=== PATIENT | male | born 1990 | race Asian ===

== ENCOUNTER 2021-01-06 08:01 | Emergency (ER) | payer BC, SELFPAY ==
--- NOTE | ~2021-01-06 | XR_ITS ---
EXAMINATION:XR cervical spine 4-5V DATE: 01/06/2021 09:35 INDICATION: Neck pain TECHNIQUE: AP, lateral, lateral swimmers and odontoid views of the cervical spine are provided. COMPARISON: None FINDINGS: Alignment is normal. The odontoid is intact. No fracture is identified. Evaluation is somew hat limited by head positioning. Vertebral body heights and disk spaces are normal. Prevertebral soft tissues are normal. There is rightward tilt of the head. IMPRESSION: 1. No acute osseous abnormality. 2. Torticollis. Reviewed, dictated and finalized at location B.
[2021-01-06 08:11] VITALS: BP 126/78; PULSE 64; RESP 18; TEMP 36.7; O2SAT 100
[2021-01-06] MEDS: diazePAM (*CRX) 5 MG TABLET PO (09:49)
--- NOTE | 2021-01-06 10:53 | ED.BACK ---
HPI - Back Pain/Injury General Chief Complaint: Back Pain/Injury Stated Complaint: back and arm pain/neck pain Time Seen by Provider: 01/06/21 08:11 Source: RN notes reviewed History of Present Illness HPI Narrative: Patient presents to emergency department from home for neck and back pain. Patient states he has had ongoing history with upper neck and back pain for the past year and a half that worsened upon awaking 2 days ago. The pain is located over the left lower neck and upper back states he is unable to turn his neck secondary to the pain and then head is held slightly rotated to the right patient states pain radiates into his left arm he denies any known trauma or injury states he took ibuprofen at 630 this morning denies any fevers or chills, chest pain shortness of breath numbness of the extremities or any other symptoms Related Data Home Medications Medication Instructions Recorded Confirmed albuterol sulfate 90 mcg/actuation 1 puff INHALATION Q4H PRN 06/26/19 06/26/19 aerosol inhaler epinephrine 0.3 mg/0.3 mL 0.3 mg IM ONCE 06/26/19 06/26/19 injection, auto-injector methylphenidate HCl 20 mg tablet 20 mg PO DAILY 06/26/19 06/26/19 montelukast 10 mg tablet 10 mg PO DAILY 06/26/19 06/26/19 Allergies Allergy/AdvReac Type Severity Reaction Status Date / Time No Known Allergies Allergy Verified 01/06/21 09:02 Review of Systems Review of Systems: Gen.: Denies fevers or chills Eyes: Denies eye pain or visual change ENT: Denies congestion Respiratory: Denies shortness of breath or cough CV: Denies chest pain or palpitations GI: Denies abdominal pain nausea, emesis Musculoskeletal: See HPI Neuro: Denies numbness, tingling, weakness or focal weakness Skin: Denies rash Except as documented, all other systems reviewed and negative [facility] Past Medical History Medical History (Updated 01/06/21 @ 10:56 by Garfield Yang DO) Patient denies significant medical history Social History Social History Smoking status: Never smoker Alcohol intake: never Substance use: never Exam Narrative: APPEARANCE: No acute distress, nontoxic, resting in bed EYES: EOMI HEENT: Normocephalic, atraumatic, Neck: Supple no midline tenderness to palpation has held slightly rotated and able to the right unable to side bend to the left secondary to pain patient can rotate the left approximately 45 degrees and only 30 degrees to the right secondary to pain tenderness to palpation in the left trapezius region with muscle spasm present RESPIRATORY: No respiratory distress Clear to auscultation bilaterally with no rhonchi wheezing or rales. CARDIOVASCULAR: Regular rate and rhythm without murmurs rubs or gallops. ABDOMINAL: Soft, nontender, nondistended, no rebound or guarding MUSCULOSKELETAl: Moves all extremities. No clubbing, cyanosis or edema. Tender to palpation in the left neck with flexion abduction of left shoulder in the 45 degrees, bilateral radial pulse 2+ NEURO: Awake and alert. Following commands, speech normal, no focal deficits SKIN:: Warm, dry. No rashes lesions or abrasions PSYCHIATRIC: Normal affect/mood, Course Course Emergency Course: Patient has asking for additional pain medicine he took ibuprofen at 630 this morning not due for Toradol or any official anti-inflammatories at this time given Valium in ED and wished not give any further narcotics Tylenol given Discussed with patient results of workup and diagnosis. Discussed need for follow-up with primary care, proper use of medication, and reasons to return to the emergency department. Patient understands and agrees to current treatment plan Vital Signs Vital signs: Vital Signs Temperature 98.0 F 01/06/21 08:11 Pulse Rate 64 01/06/21 08:11 Respiratory Rate 18 01/06/21 08:11 Blood Pressure 126/78 01/06/21 08:11 Pulse Oximetry 100 01/06/21 08:11 Temperature 98.0 F 01/06/21 08:11 Puls
[2021-01-06] MEDS: ACETAMINOPHEN 500 MG TABLET 1000 MG PO (10:58)
[2021-01-06 11:10] VITALS: BP 140/77; PULSE 58; RESP 15; O2SAT 99
== END 2021-01-06 11:11 | disposition home or self-care (01) ==
PROVIDERS: Emergency Provider Emergency Medicine; PCP Family Medicine
DX: S16.1XXA Strain of muscle, fascia and tendon at neck level, initial encounter (principal); M43.6 Torticollis; X58.XXXA Exposure to other specified factors, initial encounter
CPT/HCPCS: 72050; 99283; A9270

== ENCOUNTER 2021-05-03 19:18 | Inpatient (IN) | payer BC, SELFPAY ==
--- NOTE | ~2021-05-03 | US_ITS ---
EXAMINATION: US scrotum doppler DATE: 05/06/2021 07:53 INDICATION: Scrotal infection. TECHNIQUE: Grayscale and Doppler ultrasound images of the testes were obtained. COMPARISON: Ultrasound 05/03/2021 FINDINGS: The right testis measures 4.3 x 2.7 x 2.5 cm. The left testis measures 4.2 x 2.9 x 3.1 cm. There is increased vascular flow to both testes. The right epididymis demonstrates increased vascular flow. The left epididymis demonstrate increased vascular flow. There is a small left hydrocele conta ining hypoechoic material and septations. Scrotal skin thickening is noted. IMPRESSION: 1. Small left hydrocele containing hypoechoic material and septations. 2. Bilateral epididymoorchitis. 3. Scrotal skin thickening. Reviewed, dictated and finalized at location A. ENTARY SPANISH TEACHER
--- NOTE | ~2021-05-03 | CT_ITS ---
EXAMINATION: CT abdomen pelvis w con EXAM DATE: 05/03/2021 23:52 INDICATION: scrotal pain, edema, recent surgery, LLQ abdominal . TECHNIQUE: Spiral CT of the abdomen and pelvis was performed without contrast. Axial, coronal and s agittal images of the abdomen and pelvis were reviewed. The dose-length product (DLP) for this exami nation was 392.62 mGy-cm. The exposure was tailored according to patient size (auto mA exposure cont rol), and iterative reconstruction (ASIR) was used as additional dose reduction technique. There is no prior study for comparison. FINDINGS: There is complex appearing left hydrocele with enhanced appearing wall, possible abscess. T here is severe edema of the scrotum without pneumatosis. There are 1.6 and 0.7 cm right liver lobe hy podensities medially likely benign histology given patient's age. The spleen, pancreas, adrenal gland s are unremarkable. Gallbladder is unremarkable. No biliary obstruction. Portal and splenic veins a re patent. Kidneys enhance symmetrically. There is no hydronephrosis. The prostate is unremarkabl e. The bladder is unremarkable. There is no retroperitoneal or pelvic lymphadenopathy. The appendix is normal. The stomach and small bowel are unremarkable. There is expected amount of c olonic stool. No free intraperitoneal gas. The heart is normal in size. There are no pericardial or pleural effusions. The lung bases are unremarkable. There are no osteoblastic or osteolytic les ions identified. IMPRESSION: 1. Moderate left hydrocele or possibly abscess. 2. Severe scrotal swelling without evidence of fasciitis. 3. Two small liver lesions likely benign. Reviewed, dictated and finalized at location A. CTIONS THERAPIST
--- NOTE | ~2021-05-03 | US_ITS ---
EXAMINATION: US scrotum doppler EXAM DATE: 05/03/2021 22:57 INDICATION: Scrotal edema, pain s/p surgery Edema post vasectomy, worse on left. TECHNIQUE: Multiple grayscale and Doppler images of the testicles and scrotum were obtained bilateral ly. There is no prior study for comparison. FINDINGS: Diffuse thickening of the scrotum suspected, edema. Right testicle measures 4.2 x 3.2 x 2.6 cm and is morphologically normal. Low resistance Doppler emil w confirmed. The epididymis is unremarkable. There is no hydrocele or varicocele. Left testicle measures 4.2 x 2.7 x 3.2 cm and is morphologically normal. Low resistance Doppler flow confirmed. The epididymis is unremarkable. Complex proteinaceous moderate size left-sided hydrocele with multiple septations. IMPRESSION: 1. Moderate-sized complex left-sided hydrocele. 2. Scrotal edema edema. Reviewed, dictated and finalized at location A. CIAN/ILLUSIONIST
[2021-05-03 19:23] VITALS: BP 122/68; PULSE 93; RESP 18; TEMP 36.8; O2SAT 100
--- NOTE | 2021-05-03 21:42 | ED.FEVER ---
HPI - Fever General Chief Complaint: Fever Stated Complaint: Fever of 102 after vasectomy Time Seen by Provider: 05/03/21 21:42 Source: patient Mode of arrival: ambulatory Limitations: no limitations History of Present Illness HPI Narrative: Patient is a 31-year-old male with a history of recent vasectomy on April 21, with Dr. Lara, presenting for evaluation of fever, testicular pain. Patient states that he has been taking 600 mg of ibuprofen every 8-12 hours since his surgery. Patient reports testicular swelling, greater on the left. Denies any dysuria, frequency or urgency. No discharge. No hesitancy. Patient reports some chafing in the left inguinal area which is causing him some discomfort. He reports a fever of 102 Fahrenheit this evening. Patient is not set to have follow-up for the next 2 weeks. He has not been seen since the surgery. Patient denies cough, vomiting, abdominal pain. No other rashes or bruising. No known history of Covid. He has been vaccinated for Covid. Related Data Home Medications Medication Instructions Recorded Confirmed albuterol sulfate 90 mcg/actuation 1 puff INHALATION Q4H PRN 06/26/19 06/26/19 aerosol inhaler methylphenidate HCl 20 mg tablet 20 mg PO DAILY 06/26/19 06/26/19 montelukast 10 mg tablet 10 mg PO DAILY 06/26/19 06/26/19 Allergies Allergy/AdvReac Type Severity Reaction Status Date / Time ciprofloxacin [From Cipro] Allergy Redness of Verified 05/04/21 00:31 Skin Review of Systems Review of Systems: CONSTITUTIONAL: Reports fever EYES: Denies visual changes, redness, or discharge. ENT: Denies rhinorrhea, congestion, sore throat, or otalgia. CARDIOVASCULAR: Denies chest pain, palpitations, or edema. RESPIRATORY: Denies cough or dyspnea. GASTROINTESTINAL: Denies abdominal pain, nausea, vomiting, or diarrhea. GENITOURINARY: Denies dysuria or hematuria. Reports left testicular pain. Denies penile discharge or lesions. SKIN: Denies rash or itching. MUSCULOSKELETAL: Denies back pain, joint pain, or myalgia. NEUROLOGIC: Denies headache, numbness, or weakness. [facility] Past Medical History Medical History (Updated 05/04/21 @ 00:13 by Yohana Marcano MD) Mild persistent asthma without complication Patient denies significant medical history Torticollis Social History Social History Smoking status: Never smoker Alcohol intake: never Alcohol use details: social Substance use: never Gender identity (if verbalized by the patient): Male Exam Narrative: GENERAL: Awake, alert, conversant HEAD: Normocephalic, atraumatic. EYES: PERRLA and EOMI. ENT: Nares clear, no rhinorrhea or epistaxis. Mucous membranes moist. NECK: Supple. CHEST: No respiratory distress, breathing even and non labored HEART: Regular rate, sinus rhythm ABDOMEN:Non distended, non tender : Patient with significant scrotal edema bilaterally, greater on the left than on the right. Skin of the scrotum is taut. It is mildly indurated and erythematous. There is ecchymosis and bruising. No associated inguinal lymphadenopathy. No excoriation. No hernia. Penis is uncircumcised, glans is normal, no discharge, lesions or pain. EXTREMITIES: Normal range of motion. No edema. SKIN: Warm, dry, no rash. NEURO:No focal deficits. Alert and oriented x3 Course Vital Signs Vital signs: Vital Signs Temperature 36.8 C 05/03/21 19:23 Pulse Rate 93 05/03/21 19:23 Respiratory Rate 18 05/03/21 19:23 Blood Pressure 122/68 05/03/21 19:23 Pulse Oximetry 100 05/03/21 19:23 Temperature 36.8 C 05/03/21 22:02 Pulse Rate 79 05/04/21 00:04 Respiratory Rate 18 05/04/21 00:04 Blood Pressure 136/69 05/04/21 00:04 Pulse Oximetry 100 05/04/21 00:04 MDM - Fever MDM Narrative Medical decision making narrative: Patient presenting for evaluation of fever, scrotal pain and edema. At the time of assessme
[2021-05-03 22:02] VITALS: BP 125/60; PULSE 77; RESP 18; TEMP 36.8; O2SAT 100
--- NOTE | 2021-05-03 22:02 | PC.NURSE ---
ultra sound called in at this time.
[2021-05-03] MEDS: SODIUM CHLORIDE 0.9% IV 1,000 ML 999 ML IV CONT (22:16)
[2021-05-03 22:38] LABS: Basophils Percent Auto 0.2 % (0.2-1.2); Eosinophils Absolute Auto 0.1 K/mm3 (0-0.3); Eosinophils Percent Auto 1.1 % (0-4.4); Hematocrit 32.4 % (42.0-52.0); Immature Granulocyte Absolute 0.07 K/mm3 (0.00-0.031); Immature Granulocyte Percent A 0.6 % (0-0.5); Lymphocytes Absolute Auto 1.23 K/mm3 (0.9-3.2); Lymphocytes Percent Auto 10.1 % (18.3-44.2); Mean Corpuscular Hemoglobin 28.6 pg (26-34); Mean Corpuscular Volume 84.2 fl (80-100); Mean Platelet Volume 9.4 fl (7.4-10.4); Monocytes Absolute Auto 1.4 K/mm3 (0.1-0.6); Monocytes Percent Auto 11.4 % (2.6-8.5); Neutrophils Absolute Auto 9.3 K/mm3 (1.3-6.7); Neutrophils Percent Auto 76.6 % (45.5-73.1); Platelet Count Result 251 k/mm3 (150-375); Red Blood Count 3.85 M/mm3 (4.6-6.20); Red Cell Distribution Width 11.4 % (11.5-14.5); White Blood Count 12.1 K/mm3 (4.5-10.0)
[2021-05-03 22:47] LABS: Add Urine Microscopic? YES; Appearance Urine Clear (Clear); Bilirubin Urine Negative (Negative); Blood Urine Negative (Negative); Color Urine Straw (Yellow); Glucose Urine UA Negative (Negative); Ketones Urine Trace mg/dL (Negative); Leukocyte Esterase Ur Negative LEU/UL (Negative); Mucus Urine Rare /lpf; Nitrate Urine Negative (Negative); Protein Urine Negative (Negative); RBC Urine 0-2 /hpf (0-2); Squamous Epithelial Cell Urine Rare /hpf (Few); Urobilinogen Urine Negative mg/dL (<2.0); WBC Urine 0-3 /hpf
[2021-05-03 22:50] LABS: Specific Grav Ur 1.002 (1.001-1.035)
[2021-05-03 22:51] LABS: Alanine Aminotransferase 100 U/L (4-50); Albumin Level 4.2 g/dL (3.5-5.1); Alkaline Phosphatase 155 U/L (38-126); Anion Gap 8 mmol/L (8-16); Aspartate Amino Transferase 64 U/L (17-59); Bilirubin,Total 1.1 mg/dL (0.2-1.3); Blood Urea Nitrogen 10 mg/dL (9-20); CRP 8.1 mg/dL (<1.0); Calcium 9.2 mg/dL (8.4-10.2); Carbon Dioxide 27 mmol/L (22-30); Chloride 99 mmol/L (98-107); Estimated CRCL calculation 118 ml/min; Estimated Glomerular Filt Rate > 60; Glucose 107 mg/dL (65-110); Potassium 3.4 mmol/L (3.4-5.0); Sodium 134 mmol/L (137-145)
--- NOTE | 2021-05-03 23:10 | PC.NURSE ---
Report received from LANRE Harkins, to continue care. Pt denies needs at present. Awaiting disposition.
[2021-05-04] VITALS (10 sets, daily range): BP systolic 118–136; BP diastolic 61–79; PULSE 79–103; RESP 18; TEMP 36.9–37.8; O2SAT 98–100; BMI 24.5
[2021-05-04] MEDS: CIPROFLOXACIN 400 MG/D5W 200ML 200 ML 200 MG IVPB (00:02)
--- NOTE | 2021-05-04 00:06 | PC.NURSE ---
Pt requests something for pain to his perineum. States normally takes 600mg of ibuprofen. Dr. Marcano made aware.
[2021-05-04] MEDS: MORPHINE SULFATE (*CRX) 4 MG/ML INJ IV PUSH (00:24)
--- NOTE | 2021-05-04 00:25 | PC.NURSE ---
Note reddish streak to left hand leading up to forearm from IV catheter where cipro was infusing. Cipro stopped and line flushed. Pt states feels a little itchy at the site which he didn't notice until asked. Denies SOB. Dr. Marcano made aware.
--- NOTE | 2021-05-04 01:02 | PC.NURSE ---
Redness to arm has completely gone without further intervention. Cipro listed as an allergy in patient's chart and pt informed.
[2021-05-04] MEDS: SODIUM CHLORIDE 0.9% IV 1,000 ML 125 ML IV CONT ×3 (01:56→17:12)
--- NOTE | 2021-05-04 02:51 | PC.NURSE ---
Pt updated on full bed capacity at present time. Made aware to let RN know if needs anything. Reminded pt of NPO status.
--- NOTE | 2021-05-04 05:03 | PC.NURSE ---
Attempt to call report, floor unable to take.
--- NOTE | 2021-05-04 05:03 | PC.NURSE ---
Bed assignment received from [employer]. SBAR faxed.
--- NOTE | 2021-05-04 06:12 | ADMGEN ---
This patient, Clint Mcguire, was admitted to [address] [place] [address] Room 307-02 at 0530. Patient/family oriented to hospital policies and general routines including ID bracelet, bed and alarms, visiting hours, pain management, procedures, bathroom and other care routines, personal items, smoking policy, room service/diet, and visiting hours. Information on how to activate the Rapid Response Team has been discussed. Patient/Family are encouraged to report perceived risks to care and to ask questions if they do not understand what they are told or what they should do.
--- NOTE | 2021-05-04 10:33 | PM.IMHP ---
H&P: HPI History of Present Illness Date/Time: 05/04/21 10:33 Chief Complaint: Left scrotal swelling with fever post vasectomy Narrative: Stan is a 31-year-old white male who underwent a vasectomy April 21. Patient has developed some left scrotal swelling with pain and what he described this fever. This problems and to make an emergency room visit. Patient has been afebrile in the emergency room [place] [id number]. Patient underwent a scrotal ultrasound as well as CT scan was describes complex left hydrocele with question of abscess. Patient will be admitted for IV antibiotics and further management. Review of Systems Review of Systems: All systems reviewed & are unremarkable except as noted in HPI and below PMFSH Past Medical History Medical History Mild persistent asthma without complication Patient denies significant medical history Torticollis Family History Family History Mother Eye cancer Mother Skin cancer Social History Social History Smoking status: Never smoker Alcohol intake: former Alcohol use details: social Substance use: never Gender identity (if verbalized by the patient): Male Spiritual care concerns: No Meds Home Medications and Allergies Home Medications Medication Instructions Recorded Confirmed Type albuterol sulfate 90 mcg/actuation 1 puff INHALATION Q4H PRN 06/26/19 05/04/21 History aerosol inhaler methylphenidate HCl 20 mg tablet 20 mg PO DAILY 06/26/19 05/04/21 History montelukast 10 mg tablet 10 mg PO DAILY 06/26/19 05/04/21 History cyclobenzaprine 10 mg PO Q8H PRN 05/04/21 05/04/21 History ibuprofen 600 mg PO Q6H PRN 05/04/21 05/04/21 History Allergies Allergy/AdvReac Type Severity Reaction Status Date / Time ciprofloxacin [From Cipro] Allergy Redness of Verified 05/04/21 03:46 Skin Vital Signs Vital Signs - 24 hr 05/03/21 19:23 05/03/21 22:02 05/04/21 00:04 Temperature 36.8 C 36.8 C Pulse Rate 93 77 79 Respiratory Rate 18 18 18 Blood Pressure 122/68 125/60 136/69 Pulse Oximetry 100 100 100 05/04/21 00:16 05/04/21 00:31 05/04/21 00:46 Temperature Pulse Rate Respiratory Rate Blood Pressure 132/75 130/73 120/66 Pulse Oximetry 100 100 100 05/04/21 01:22 05/04/21 01:46 05/04/21 05:30 Temperature 37.8 C H Pulse Rate 100 Respiratory Rate 18 Blood Pressure 132/79 118/66 124/71 Pulse Oximetry 100 99 99 Exam Const: General: cooperative and no acute distress HENMT: Head: normal to inspection Eyes: General: appearance normal, both eyes and all related structures Neck: Neck: normal visual inspection Chest: Chest palpation & inspection: normal inspection of the chest Resp: Effort & Inspection: normal respiratory effort Cardio: Rate: regular rate Rhythm: regular rhythm GI: GI Palp: Yes Soft to palpation : Penis: Yes normal penis Scrotum: edematous and scrotal swelling H&P: Results Labs Labs: Short CBC 05/03/21 Range/Units 22:28 WBC 12.1 H (4.5-10.0) K/mm3 Hgb 11.0 L (14.0-18.0) g/dL Hct 32.4 L (42.0-52.0) % Plt Count 251 (150-375) k/mm3 BMP 05/03/21 22:28 Sodium 134 L Potassium 3.4 Chloride 99 Carbon Dioxide 27 BUN 10 Creatinine 0.70 Glucose 107 Calcium 9.2 Liver Function 05/03/21 Range/Units 22:28 Total Bilirubin 1.1 (0.2-1.3) mg/dL AST 64 H (17-59) U/L ALT 100 H (4-50) U/L Alkaline Phosphatase 155 H (38-126) U/L Albumin 4.2 (3.5-5.1) g/dL Urine 05/03/21 Range/Units 22:28 Urine Color Straw (Yellow) Urine Appearance Clear (Clear) Urine pH 6.0 (5.0-9.0) Ur Specific [place] 1.002 (1.001-1.035) Urine Protein Negative (Negative) mg/dL Urine Glucose (UA) Negative (Negative) mg/dL
[2021-05-04] MEDS: ACETAMINOPHEN 325 MG TABLET 650 MG PO (11:30)
--- NOTE | 2021-05-04 12:28 | WPDURCON ---
Assessment and Plan Assessment and plan (1) Left epididymitis: Code(s): N45.1 - Epididymitis Status: Acute Assessment and Plan: Continue IV Zosyn, apply ICE PRN to scrotum, elevate scrotum with scrotal support or a rolled towel. I added Torodol for pain which may be more helpful d/t inflammation than Tylenol. Patient was febrile early this morning, will watch patient overnight and recheck CBC tomorrow, assuming WBC will hopefully decrease to baseline. No need to surgically address the issue at this time, will get another scrotal US in a few weeks to ensure resolution of hydrocele and inflammation. If fever's persist or WBC elevates, will discuss with Dr. Mcdermott about further evalution plans. (2) Painful scrotum: Code(s): N50.82 - Scrotal pain Status: Acute (3) H/O vasectomy: Code(s): Z98.52 - Vasectomy status Status: Acute Urology Consult Note HPI Date Seen: 05/04/21 Requesting Physician: Neri Mcdermott MD Primary Care Provider: Ishan Chadwick MD Consult Narrative Narrative: Clint Mcguire is a 31 year old male who presented to the ER last night for worsening orchalgia and fever. He is s/p Vasectomy with Dr. Lara on 04/21/2021 and developed sympotms several days after his vasectomy. He had been taking 800mg Ibuprofen q 6 since the procedure but could no longer stand the pain. He has scrotal edema, tenderness and a low grade fever today. WBC is 12.1, creatinine is normal at 0.70 and he had a scrotal US that shows a moderately sized complex left hydrocele. His CT however confirms a left hydrocele but notes a possible abscess with severe scrotal edema. He is currently on Zosyn and seems to be responding, his pain is slightly improved. Review of Systems Cardiovascular: Cardiovascular: Denies chest pain Respiratory: Respiratory: Reports no additional respiratory complaints Gastrointestinal: Gastrointestinal: Denies abdominal pain, Denies nausea and Denies vomiting Genitourinary: Genitourinary: Denies hematuria, Reports genital pain, Denies dysuria, Denies flank pain, Reports testicular pain and Denies urinary urgency PMFSH Past Medical History Medical History Mild persistent asthma without complication Patient denies significant medical history Torticollis Family History Family History Mother Eye cancer Mother Skin cancer Social History Social History Smoking status: Never smoker Alcohol intake: former Alcohol use details: social Substance use: never Gender identity (if verbalized by the patient): Male Spiritual care concerns: No Meds Home Medications and Allergies Home Medications Medication Instructions Recorded Confirmed Type albuterol sulfate 90 mcg/actuation 1 puff INHALATION Q4H PRN 06/26/19 05/04/21 History aerosol inhaler methylphenidate HCl 20 mg tablet 20 mg PO DAILY 06/26/19 05/04/21 History montelukast 10 mg tablet 10 mg PO DAILY 06/26/19 05/04/21 History cyclobenzaprine 10 mg PO Q8H PRN 05/04/21 05/04/21 History ibuprofen 600 mg PO Q6H PRN 05/04/21 05/04/21 History Allergies Allergy/AdvReac Type Severity Reaction Status Date / Time ciprofloxacin [From Cipro] Allergy Redness of Verified 05/04/21 03:46 Skin Vital Signs Vital Signs - 24 hr 05/03/21 19:23 05/03/21 22:02 05/04/21 00:04 Temperature 98.3 F 98.3 F Pulse Rate 93 77 79 Respiratory Rate 18 18 18 Blood Pressure 122/68 125/60 136/69 Pulse Oximetry 100 100 100 05/04/21 00:16 05/04/21 00:31 05/04/21 00:46 Temperature Pulse Rate Respiratory Rate Blood Pressure 132/75 130/73 120/66 Pulse Oximetry 100 100 100 05/04/21 01:22 05/04/21 01:46 05/04/21 05:30 Temperature 100.1 F H Pulse Rate 100 Respiratory Rate 18 Blood Pressure 132/79 118/66 124/71
[2021-05-04] MEDS: KETOROLAC 15 MG/ML VIAL (*BKC) IV PUSH ×2 (17:10→22:50)
[2021-05-05] MEDS: SODIUM CHLORIDE 0.9% IV 1,000 ML 125 ML IV CONT ×3 (01:51→22:08)
[2021-05-05 05:57] VITALS: BP 133/66; PULSE 93; RESP 16; TEMP 37.9; O2SAT 99
[2021-05-05 06:55] LABS: Basophils Percent Auto 0.4 % (0.2-1.2); Eosinophils Absolute Auto 0.2 K/mm3 (0-0.3); Eosinophils Percent Auto 1.4 % (0-4.4); Hematocrit 29.7 % (42.0-52.0); Hemoglobin 10.1 g/dL (14.0-18.0); Immature Granulocyte Absolute 0.05 K/mm3 (0.00-0.031); Immature Granulocyte Percent A 0.5 % (0-0.5); Lymphocytes Absolute Auto 1.02 K/mm3 (0.9-3.2); Lymphocytes Percent Auto 9.3 % (18.3-44.2); Mean Corpuscular Hemoglobin 28.4 pg (26-34); Mean Corpuscular Volume 83.4 fl (80-100); Mean Platelet Volume 9.5 fl (7.4-10.4); Monocytes Absolute Auto 1.4 K/mm3 (0.1-0.6); Monocytes Percent Auto 12.6 % (2.6-8.5); Neutrophils Absolute Auto 8.3 K/mm3 (1.3-6.7); Neutrophils Percent Auto 75.8 % (45.5-73.1); Platelet Count Result 227 k/mm3 (150-375); Red Blood Count 3.56 M/mm3 (4.6-6.20); Red Cell Distribution Width 11.4 % (11.5-14.5)
[2021-05-05] MEDS: KETOROLAC 15 MG/ML VIAL (*BKC) IV PUSH ×2 (06:58→16:02)
[2021-05-05 07:07] LABS: Alanine Aminotransferase 81 U/L (4-50); Albumin Level 3.4 g/dL (3.5-5.1); Alkaline Phosphatase 161 U/L (38-126); Anion Gap 6 mmol/L (8-16); Aspartate Amino Transferase 42 U/L (17-59); Bilirubin,Total 1.4 mg/dL (0.2-1.3); Blood Urea Nitrogen 9 mg/dL (9-20); Calcium 8.3 mg/dL (8.4-10.2); Carbon Dioxide 26 mmol/L (22-30); Chloride 104 mmol/L (98-107); Estimated CRCL calculation 118 ml/min; Estimated Glomerular Filt Rate > 60; Glucose 106 mg/dL (65-110); Potassium 3.4 mmol/L (3.4-5.0); Sodium 136 mmol/L (137-145)
--- NOTE | 2021-05-05 08:05 | WPDUROPN2 ---
Progress Note: A&P Assessment and Plan (1) Cellulitis of scrotum: Code(s): N49.2 - Inflammatory disorders of scrotum Status: Acute Assessment and Plan: Continue with IV antibiotics. White count [id number] Lara to re-evaluate in the morning. LFTs are slightly increased and will need further follow-up possibly as outpatient Subjective Subjective Date/Time Seen: 05/05/21 08:05 Principal diagnosis: Scrotal cellulitis Interval history: No significant change in symptoms at this time. Still has some mild discomfort and swelling. Review of Systems Review of Systems: All systems reviewed & are unremarkable except as noted in HPI and below Exam Const: General: cooperative and no acute distress Resp: Effort & Inspection: normal respiratory effort Cardio: Rate: regular rate Rhythm: regular rhythm : Scrotum: edematous and scrotal swelling Objective Data Vital Signs Vital Signs: Vital Signs - 24 hr 05/04/21 14:00 05/04/21 20:00 05/04/21 21:47 Temperature 37.0 C 36.9 C Pulse Rate 103 H 94 94 Respiratory Rate 18 18 18 Blood Pressure 125/61 124/64 Pulse Oximetry 98 100 100 05/05/21 05:57 Temperature 37.9 C H Pulse Rate 93 Respiratory Rate 16 Blood Pressure 133/66 Pulse Oximetry 99 Intake/Output Intake/Output: Intake & Output 05/02/21 05/03/21 05/04/21 05/05/21 23:59 23:59 23:59 23:59 Intake Total 3959 1850 Output Total 500 600 Balance 3459 1250 Meds/Results Medications: Active Medications Generic Name Dose Route Start Last Admin Trade Name Freq PRN Reason Stop Dose Admin Acetaminophen 650 mg 05/04/21 11:13 05/04/21 11:30 Acetaminophen 325 Mg Tablet PO 650 mg Q4H PRN Administration Mild Pain (1-3) Sodium Chloride 1,000 mls @ 125 mls/hr 05/04/21 00:25 05/05/21 01:51 Normal Saline Iv IV CONT 125 mls/hr .Q8H SUSY Administration Piperacillin/Tazobactam/Dextrose 3.375 gm in 50 mls @ 100 mls/hr 05/04/21 06:00 05/05/21 06:30 Zosyn 3.375 Gm/D5w 50ml Pm IVPB Infused Q6H SUSY Infusion Ketorolac Tromethamine 15 mg 05/04/21 12:28 05/05/21 06:58 Ketorolac 15 Mg/Ml Vial (*Bkc) IV PUSH 15 mg Q6H PRN Administration Pain Rated 4-6 Morphine Sulfate 4 mg 05/04/21 00:21 Morphine Sulfate (*Crx) 4 Mg/Ml Inj IV PUSH Q2H PRN Pain Rated 7-10 Radiology Results: ITS Impressions Scrotum Ultrasound 05/03/21 22:59 IMPRESSION: 1. Moderate-sized complex left-sided hydrocele. 2. Scrotal edema edema. ADDENDUM: 05/03/21 2320 Reportedly surgery was last month and swelling has been increasing. Patient also has fever and elevated white count. Dr. Darden and I discussed the possibility of the hydrocele being infected, and also concern about possible fasciitis. CT scan pelvis would be more sensitive to detect peroneal gas. Abdomen/Pelvis CT 05/03/21 23:53 IMPRESSION: 1. Moderate left hydrocele or possibly abscess. 2. Severe scrotal swelling without evidence of fasciitis. 3. Two small liver lesions likely benign. Labs Labs: Laboratory Results - last 24 hr 05/05/21 05/05/21 06:31 06:31 WBC 11.0 H RBC 3.56 L Hgb 10.1 L Hct 29.7 L MCV 83.4 MCH 28.4 MCHC 34.0 RDW 11.4 L Plt Count 227 MPV 9.5 Immature Gran % (Auto) 0.5 Neut % (Auto) 75.8 H Lymph % (Auto) 9.3 L [place] % (Auto) 12.6 H Eos % (Auto) 1.4 Baso % (Auto) 0.4 Lymph # (Auto) 1.02 [place] # (Auto) 1.4 H Eos # (Auto) 0.2 Baso # (Auto) 0.0 Abs Immat Gran (auto) 0.05 H Absolute Neuts (auto) 8.3 H Absolute Nucleated RBC 0.0 Nucleated RBC % 0.0 Sodium 136 L Potassium 3.4 Chloride 104 Carbon Dioxide 26 Anion Gap 6 L BUN 9 Creatinine 0.70 Estim Creat Clear Calc 118 Estimated GFR > 60 Glucose 106 Calcium 8.3 L Total Bilirubin 1.4 H AST 42 ALT 81 H Alkaline Phosphatase 161 H Total Protein 6.0 L Albumin 3.4 L
[2021-05-05 14:00] VITALS: BP 129/78; PULSE 87; RESP 19; TEMP 37.3; O2SAT 100
[2021-05-05 20:00] VITALS: PULSE 86; RESP 18; O2SAT 100
[2021-05-05 21:05] VITALS: BP 138/82; PULSE 86; RESP 18; TEMP 38.2; O2SAT 100
[2021-05-05] MEDS: ACETAMINOPHEN 325 MG TABLET 650 MG PO (22:06)
[2021-05-06 05:50] VITALS: BP 121/75; PULSE 95; RESP 16; TEMP 36.3; O2SAT 100
[2021-05-06] MEDS: SODIUM CHLORIDE 0.9% IV 1,000 ML 125 ML IV CONT ×2 (06:22→17:13)
--- NOTE | 2021-05-06 07:08 | WPDUROPN2 ---
Progress Note: A&P Assessment and Plan (1) Cellulitis of scrotum: Code(s): N49.2 - Inflammatory disorders of scrotum Status: Acute Assessment and Plan: Spontaneous scrotal drainage overnight. Will repeat scrotal u/s to look for abscess formation. Subjective Subjective Date/Time Seen: 05/06/21 07:08 Spontaneous purulent drainage from scrotum overnight Review of Systems Cardiovascular: Cardiovascular: Denies chest pain, Denies lightheadedness, Denies palpitations and Denies dyspnea Respiratory: Respiratory: Denies dyspnea Gastrointestinal: Gastrointestinal: Denies diarrhea, Denies nausea and Denies vomiting Genitourinary: Genitourinary: Denies hematuria and Denies dysuria Endocrine: Endocrine: Denies palpitations Exam Const: General: no acute distress Resp: Effort & Inspection: normal respiratory effort GI: Inspection: non-distended GI Palp: No abdominal tenderness and No Guarding due to palpation present (GI) Auscultation: normal bowel sounds : Scrotum: other (less tense, questionable fluctuance) Objective Data Vital Signs Vital Signs: Vital Signs - 24 hr 05/05/21 14:00 05/05/21 20:00 05/05/21 21:05 Temperature 99.2 F 100.7 F H Pulse Rate 87 86 86 Respiratory Rate 19 18 18 Blood Pressure 129/78 138/82 Pulse Oximetry 100 100 100 05/06/21 05:50 Temperature 97.4 F L Pulse Rate 95 Respiratory Rate 16 Blood Pressure 121/75 Pulse Oximetry 100 Intake/Output Intake/Output: Intake & Output 05/03/21 05/04/21 05/05/21 05/06/21 23:59 23:59 23:59 23:59 Intake Total 3959 5530 1400 Output Total 500 600 Balance 3459 4930 1400 Meds/Results Medications: Active Medications Generic Name Dose Route Start Last Admin Trade Name Freq PRN Reason Stop Dose Admin Acetaminophen 650 mg 05/04/21 11:13 05/05/21 22:06 Acetaminophen 325 Mg Tablet PO 650 mg Q4H PRN Administration Mild Pain (1-3) Sodium Chloride 1,000 mls @ 125 mls/hr 05/04/21 00:25 05/06/21 06:22 Normal Saline Iv IV CONT 125 mls/hr .Q8H SUSY Administration Piperacillin/Tazobactam/Dextrose 3.375 gm in 50 mls @ 100 mls/hr 05/04/21 06:00 05/06/21 06:20 Zosyn 3.375 Gm/D5w 50ml Pm IVPB 100 mls/hr Q6H SUSY Administration Ketorolac Tromethamine 15 mg 05/04/21 12:28 05/05/21 16:02 Ketorolac 15 Mg/Ml Vial (*Bkc) IV PUSH 15 mg Q6H PRN Administration Pain Rated 4-6 Morphine Sulfate 4 mg 05/04/21 00:21 Morphine Sulfate (*Crx) 4 Mg/Ml Inj IV PUSH Q2H PRN Pain Rated 7-10 Radiology Results: ITS Impressions Scrotum Ultrasound 05/03/21 22:59 IMPRESSION: 1. Moderate-sized complex left-sided hydrocele. 2. Scrotal edema edema. ADDENDUM: 05/03/21 2320 Reportedly surgery was last month and swelling has been increasing. Patient also has fever and elevated white count. Dr. Darden and I discussed the possibility of the hydrocele being infected, and also concern about possible fasciitis. CT scan pelvis would be more sensitive to detect peroneal gas. Abdomen/Pelvis CT 05/03/21 23:53 IMPRESSION: 1. Moderate left hydrocele or possibly abscess. 2. Severe scrotal swelling without evidence of fasciitis. 3. Two small liver lesions likely benign. Labs Labs: Laboratory Results - last 24 hr 05/05/21 06:31 WBC 11.0 H RBC 3.56 L Hgb 10.1 L Hct 29.7 L MCV 83.4 MCH 28.4 MCHC 34.0 RDW 11.4 L Plt Count 227 MPV 9.5 Immature Gran % (Auto) 0.5 Neut % (Auto) 75.8 H Lymph % (Auto) 9.3 L [place] % (Auto) 12.6 H Eos % (Auto) 1.4 Baso % (Auto) 0.4 Lymph # (Auto) 1.02 [place] # (Auto) 1.4 H Eos # (Auto) 0.2 Baso # (Auto) 0.0 Abs Immat Gran (auto) 0.05 H Absolute Neuts (auto) 8.3 H Absolute Nucleated RBC 0.0 Nucleated RBC % 0.0
[2021-05-06 08:23] LABS: Hematocrit 32.4 % (42.0-52.0); Mean Corpuscular Hemoglobin 28.6 pg (26-34); Mean Corpuscular Volume 84.4 fl (80-100); Mean Platelet Volume 9.3 fl (7.4-10.4); Platelet Count Result 284 k/mm3 (150-375); Red Blood Count 3.84 M/mm3 (4.6-6.20); Red Cell Distribution Width 11.4 % (11.5-14.5); White Blood Count 11.2 K/mm3 (4.5-10.0)
[2021-05-06 08:33] LABS: Alanine Aminotransferase 87 U/L (4-50); Albumin Level 3.9 g/dL (3.5-5.1); Alkaline Phosphatase 211 U/L (38-126); Anion Gap 7 mmol/L (8-16); Aspartate Amino Transferase 40 U/L (17-59); Bilirubin,Total 1.2 mg/dL (0.2-1.3); Blood Urea Nitrogen 5 mg/dL (9-20); Calcium 8.9 mg/dL (8.4-10.2); Carbon Dioxide 29 mmol/L (22-30); Chloride 102 mmol/L (98-107); Estimated CRCL calculation 136 ml/min; Estimated Glomerular Filt Rate > 60; Glucose 99 mg/dL (65-110); Potassium 3.5 mmol/L (3.4-5.0); Sodium 138 mmol/L (137-145)
[2021-05-06] MEDS: KETOROLAC 15 MG/ML VIAL (*BKC) IV PUSH (09:24)
[2021-05-06 14:00] VITALS: BP 127/77; PULSE 75; RESP 20; TEMP 36.4; O2SAT 100
[2021-05-06] MEDS: ACETAMINOPHEN 325 MG TABLET 650 MG PO (21:37)
[2021-05-06 22:00] VITALS: BP 126/75; PULSE 61; RESP 16; TEMP 37.3; O2SAT 99
[2021-05-07] VITALS (14 sets, daily range): BP systolic 120–134; BP diastolic 63–84; PULSE 50–75; RESP 12–19; TEMP 36.2–36.4; O2SAT 95–100
[2021-05-07] MEDS: SODIUM CHLORIDE 0.9% IV 1,000 ML 125 ML IV CONT ×2 (00:44→12:59)
[2021-05-07 07:29] LABS: Hematocrit 30.2 % (42.0-52.0); Hemoglobin 10.1 g/dL (14.0-18.0); Mean Corpuscular HGB Conc 33.4 g/dl (32-36); Mean Corpuscular Hemoglobin 28.7 pg (26-34); Mean Corpuscular Volume 85.8 fl (80-100); Mean Platelet Volume 9.6 fl (7.4-10.4); Platelet Count Result 290 k/mm3 (150-375); Red Blood Count 3.52 M/mm3 (4.6-6.20); Red Cell Distribution Width 11.6 % (11.5-14.5); White Blood Count 7.2 K/mm3 (4.5-10.0)
--- NOTE | 2021-05-07 07:31 | WPDUROPN2 ---
Progress Note: A&P Assessment and Plan (1) Cellulitis of scrotum: Code(s): N49.2 - Inflammatory disorders of scrotum Status: Acute Assessment and Plan: Given persistent purulent drainage will plan I&D scrotum today. Subjective Subjective Date/Time Seen: 05/07/21 07:31 Comfortable, persistent purulent drainage from scrotum Review of Systems Cardiovascular: Cardiovascular: Denies chest pain, Denies lightheadedness, Denies palpitations and Denies dyspnea Respiratory: Respiratory: Denies dyspnea Gastrointestinal: Gastrointestinal: Denies diarrhea, Denies nausea and Denies vomiting Genitourinary: Genitourinary: Denies hematuria and Denies dysuria Endocrine: Endocrine: Denies palpitations Exam Const: General: no acute distress Resp: Effort & Inspection: normal respiratory effort GI: Inspection: non-distended GI Palp: No abdominal tenderness and No Guarding due to palpation present (GI) Auscultation: normal bowel sounds : Scrotum: other (less indurated, persistent purulent drainage) Objective Data Vital Signs Vital Signs: Vital Signs - 24 hr 05/06/21 14:00 05/06/21 22:00 05/07/21 06:00 Temperature 97.5 F L 99.1 F 97.2 F L Pulse Rate 75 61 75 Respiratory Rate 20 16 16 Blood Pressure 127/77 126/75 121/75 Pulse Oximetry 100 99 98 Intake/Output Intake/Output: Intake & Output 05/04/21 05/05/21 05/06/21 05/07/21 23:59 23:59 23:59 23:59 Intake Total 3959 5530 3772 1400 Output Total 500 600 Balance 3459 4930 3772 1400 Meds/Results Medications: Active Medications Generic Name Dose Route Start Last Admin Trade Name Freq PRN Reason Stop Dose Admin Acetaminophen 650 mg 05/04/21 11:13 05/06/21 21:37 Acetaminophen 325 Mg Tablet PO 650 mg Q4H PRN Administration Mild Pain (1-3) Sodium Chloride 1,000 mls @ 125 mls/hr 05/04/21 00:25 05/07/21 07:13 Normal Saline Iv IV CONT 125 mls/hr .Q8H SUSY Infusion Piperacillin/Tazobactam/Dextrose 3.375 gm in 50 mls @ 100 mls/hr 05/04/21 06:00 05/07/21 07:13 Zosyn 3.375 Gm/D5w 50ml Pm IVPB Infused Q6H SUSY Infusion Ketorolac Tromethamine 15 mg 05/04/21 12:28 05/06/21 09:24 Ketorolac 15 Mg/Ml Vial (*Bkc) IV PUSH 15 mg Q6H PRN Administration Pain Rated 4-6 Morphine Sulfate 4 mg 05/04/21 00:21 Morphine Sulfate (*Crx) 4 Mg/Ml Inj IV PUSH Q2H PRN Pain Rated 7-10 Radiology Results: ITS Impressions Abdomen/Pelvis CT 05/03/21 23:53 IMPRESSION: 1. Moderate left hydrocele or possibly abscess. 2. Severe scrotal swelling without evidence of fasciitis. 3. Two small liver lesions likely benign. Scrotum Ultrasound 05/06/21 07:55 IMPRESSION: 1. Small left hydrocele containing hypoechoic material and septations. 2. Bilateral epididymoorchitis. 3. Scrotal skin thickening. Labs Labs: Laboratory Results - last 24 hr 05/06/21 05/06/21 07:50 07:50 WBC 11.2 H RBC 3.84 L Hgb 11.0 L Hct 32.4 L MCV 84.4 MCH 28.6 MCHC 34.0 RDW 11.4 L Plt Count 284 MPV 9.3 Sodium 138 Potassium 3.5 Chloride 102 Carbon Dioxide 29 Anion Gap 7 L BUN 5 L Creatinine 0.60 L Estim Creat Clear Calc 136 Estimated GFR > 60 Glucose 99 Calcium 8.9 Total Bilirubin 1.2 AST 40 ALT 87 H Alkaline Phosphatase 211 H Total Protein 7.0 Albumin 3.9
[2021-05-07] MEDS: ACETAMINOPHEN 325 MG TABLET 650 MG PO (08:11)
--- NOTE | 2021-05-07 08:54 | WPDANESEPPF ---
Anes - Initial Pre Proc Eval Procedure: Operation Date: 05/07/21 11:15 Proposed Procedures p Incision and Drainage Scrotal Abscess - Henry Lara MD Date/Time: 05/07/21 08:54 Surgeon: Neri Mcdermott MD Pre Op Diagnosis: Scrotal Hydrocele, Scrotal Edema Patient Data Age: 31 Gender: M Height: 1.68 m Weight: 69.1 kg Last Vital Signs Temp 36.2 C L 05/07/21 06:00 Pulse 75 05/07/21 06:00 Resp 16 05/07/21 06:00 BP 121/75 05/07/21 06:00 Pulse Ox 98 05/07/21 06:00 Allergies Allergy/AdvReac Type Severity Reaction Status Date / Time ciprofloxacin [From Cipro] Allergy Redness of Verified 05/07/21 10:12 Skin Home Medications Medication Instructions Recorded Confirmed Type albuterol sulfate 90 mcg/actuation 1 puff INHALATION Q4H PRN 06/26/19 05/04/21 History aerosol inhaler methylphenidate HCl 20 mg tablet 20 mg PO DAILY 06/26/19 05/04/21 History montelukast 10 mg tablet 10 mg PO DAILY 06/26/19 05/04/21 History cyclobenzaprine 10 mg PO Q8H PRN 05/04/21 05/04/21 History ibuprofen 600 mg PO Q6H PRN 05/04/21 05/04/21 History Laboratory Tests 05/07/21 06:39 WBC 7.2 K/mm3 K/mm3 (4.5-10.0) RBC 3.52 M/mm3 L M/mm3 (4.6-6.20) Hgb 10.1 g/dL L g/dL (14.0-18.0) Hct 30.2 % L % (42.0-52.0) MCV 85.8 fl fl (80-100) MCH 28.7 pg pg (26-34) MCHC 33.4 g/dl g/dl (32-36) RDW 11.6 % % (11.5-14.5) Plt Count 290 k/mm3 k/mm3 (150-375) MPV 9.6 fl fl (7.4-10.4) Patient hx anesthesia problems: none Family hx anesthesia problems: none Results Review: All pre-operative results and documents have been reviewed as part of the pre-operative evaluation. [facility] Past Medical History Medical History (Updated 05/07/21 @ 08:55 by Javed Kaminski MD) Cellulitis of scrotum Mild persistent asthma without complication Patient denies significant medical history Torticollis Family History Family History Mother Eye cancer Mother Skin cancer Social History Social History Smoking status: Never smoker Alcohol intake: former Alcohol use details: social Substance use: never Gender identity (if verbalized by the patient): Male Spiritual care concerns: No Anes - Eval Final PreProcedure Day of Procedure 05/07/21 08:54 Patient weight: normal Heart: regular rate and rhythm Lungs: clear to auscultation and normal air movement Airway: Mallampati scale class II Neurological: alert and oriented Last oral intake: >/= 8 hours ASA classification: II Emergent: no Anesthetic plan: proceed Anesthesia type and monitoring: general LMA Results Review: All pre-operative results and documents have been reviewed as part of the pre-operative evaluation. Informed Consent: The patient's anesthetic plan and its attendant risks and benefits were discussed with the patient/family/POA. Questions were solicited and answers provided to the satisfaction of the patient/family/POA.
[2021-05-07] MEDS: LACTATED RINGERS 1,000 ML 30 ML IV CONT (10:10)
[2021-05-07] MEDS: LIDOCAINE HCL 1% PF 30 ML VIAL INFILTRATE (11:10)
--- NOTE | 2021-05-07 11:17 | W.PM.PROC2 ---
Procedure Note - Detailed Date of Procedure 05/07/21 Pre-op Diagnosis Scrotal abscess Post-op Diagnosis same Procedure Performed incision and drainage scrotal abscess Surgeon Henry Lara MD Anesthesia general Description of Procedure Patient brought trecovery room good condition the operative suite where he each he is prepped and draped in routine sterile fashion while in a supine position. This is done after the uneventful induction of a general anesthetic. A small probe was placed in the spontaneously draining site in the median [place] Fe the upper part of his scrotum. Scrotum was opened in the median raphae a and a small abscess cavity is opened widely. No necrotic tissue debris. I did obtain cultures of the wound. The abscess cavity is open widely and irrigated with saline followed by packing with 1 in Xeroform gauze. Patient tolerated this procedure well. There was minimal blood loss and he was taken to the PACU in good condition. Estimated Blood Loss 0 Urine Output 600 Drains No Packing Yes Pathology yes Complications No immediate complications Condition stable Disposition PACU
[2021-05-07] MEDS: fentaNYL CITRATE INJ (*CRX) 100 MCG/2 ML VIAL 25 MCG IV PUSH ×4 (11:35→11:55)
[2021-05-07] MEDS: MORPHINE SULFATE (*CRX) 4 MG/ML INJ IV PUSH (13:00)
--- NOTE | 2021-05-07 16:37 | P.DS_ITS ---
DS: Admitting Diagnosis Discharge Date 05/07/2021 @ 16:37 Admitting Diagnosis Scrotal abscess DS: Summary Hospital Course Hospital Course: Patient was admitted approximately 2 weeks following a sec to mo with a scrotal infection. He presented with a painful swollen scrotum. Initial ultrasound showed findings most consistent with cellulitis. On ultrasonography there was a scant fluid collection was option was made not to proceed with incision drainage. Approximately 36 hours he had spontaneous drainage of purulent fluid. Repeat scrotal ultrasound continues shows scant fluid because of the ongoing drainage we opted for an incision and drainage. That was undertaken on the 3rd day following admission. There was a small pocket of purulent fluid that was packed with iodoform subsequent to drainage and irrigation. He was discharged that evening with plans to follow-up and 3 days for packing change. He will be discharged on Omnicef. Time Spent with Patient Time attestation: Total time spent providing and/or coordinating discharge services: 15 min Exam Const: General: no acute distress Resp: Effort & Inspection: normal respiratory effort GI: Inspection: non-distended GI Palp: No abdominal tenderness and No Gu arding due to palpation present (GI) Auscultation: normal bowel sounds DS: Data Data Completed and Pending Labs on day of discharge: Labs from last 24 hours 05/07/21 06:39 WBC 7.2 RBC 3.52 L Hgb 10.1 L Hct 30.2 L MCV 85.8 MCH 28.7 MCHC 33.4 RDW 11.6 Plt Count 290 MPV 9.6 Discharge Plan Discharge Attending physician on discharge: Neri Mcdermott Discharging Clinician: Henry Lara Anticipated Discharge Date/Time: 05/07/21 16:36 Patient Disposition: Home, Self-Care Activity: may shower and other - see discharge instructions Diet: regular Discharge Instructions: 1. When showering, keep scrotum dry with ABD. Then, re-dress with dry ABD after shower. Keep packing in place. 2. Please discharge with 10-12 extra ABD's. 3. F/U in our office Monday05/10/21 @0745 - no need to call for appt. Patient Instructions: Antibiotic Form, Pain Management (DC) Stand Alone Forms: General Discharge Information Follow-up/Referrals: Henry Lara MD [Physician] - Discharge Medications: New hydrocodone-acetaminophen 5-325 mg tablet 1 - 2 tablet PO Q6H PRN (Reason: pain) Qty: 30 RF: 0 cefdinir 300 mg capsule 300 mg PO Q12H Qty: 28 RF: 0 Continued methylphenidate HCl [Ritalin] 20 mg tablet 20 mg PO DAILY RF: 0 montelukast 10 mg tablet 10 mg PO DAILY RF: 0 albuterol sulfate [ProAir HFA] 90 mcg/actuation HFA aerosol inhaler 1 puff INHALATION Q4H PRN (Reason: Shortness Of Breath) RF: 0 cyclobenzaprine 10 mg tablet 10 mg PO Q8H PRN (Reason: Muscle Spasm) RF: 0 ibuprofen 600 mg tablet 600 mg PO Q6H PRN (Reason: Pain, Moderate) RF: 0 Date of admission: 05/05/21 11:30 Primary Care Provider: Ishan Chadwick Admitting Provider: Neri Mcdermott Attending physician on admission: Neri Mcdermott Condition: Stable
[2021-05-07] MEDS: KETOROLAC 15 MG/ML VIAL (*BKC) IV PUSH (17:47)
== END 2021-05-07 18:35 | disposition home or self-care (01) | DRG 728 ==
LOC: ANHED 05-04 00:13 → ANH3MEDSUR 05-04 02:44
PROVIDERS: Admitting Provider Urology; Emergency Provider Emergency Medicine; PCP Family Medicine; Visit Provider Urology
PROC: 0V950ZX Drainage of Scrotum, Open Approach, Diagnostic (ICD-10-PCS; CPT 54700; principal; 2021-05-07 11:15)
DX: N49.2 Inflammatory disorders of scrotum (principal); N50.82 Scrotal pain; Z98.52 Vasectomy status; J45.30 Mild persistent asthma, uncomplicated; Z79.899 Other long term (current) drug therapy
CPT/HCPCS: 36415; 74177; 76870; 80053; 81001; 85025; 85027; 86140; 87070; 87075; 87147; 87186; 87205; 93976; 96361; 96365; 96366; 96367; 96375; 96376; 99285; A9270; G0378; J0744; J1885; J2250; J2270; J2405; J2543; J2704; J3010; J7030; J7120; Q9967

== ENCOUNTER 2021-11-26 11:35 | Emergency (ER) | payer BC, SELFPAY ==
[2021-11-26 11:42] VITALS: BP 118/63; PULSE 60; RESP 16; TEMP 37.2; O2SAT 99
--- NOTE | 2021-11-26 11:54 | ED.URI ---
HPI - URI/Sore Throat General Chief Complaint: Extremity Injury, Upper Stated Complaint: Sore Throat Time Seen by Provider: 11/26/21 12:07 Source: patient and RN notes reviewed Mode of arrival: ambulatory Limitations: no limitations History of Present Illness HPI Narrative: 31-year-old male presents with concern for sore throat for 1 week. He reports he is also started coughing. Reports nasal congestion started today. He denies fever, chills, sweats. Reports he had body aches 3 days ago. Reports his son was ill with similar symptoms, he tested negative for COVID. MD elicited complaint: cough and sore throat Related Data Home Medications Medication Instructions Recorded Confirmed albuterol sulfate 90 mcg/actuation 1 puff inhalation Q4H PRN 06/26/19 05/19/21 aerosol inhaler (ProAir HFA) Shortness Of Breath methylphenidate HCl 20 mg tablet 20 mg PO DAILY 06/26/19 05/19/21 (Ritalin) montelukast 10 mg tablet 10 mg PO DAILY 06/26/19 05/19/21 Allergies Allergy/AdvReac Type Severity Reaction Status Date / Time ciprofloxacin [From Cipro] Allergy Redness of Verified 05/19/21 10:07 Skin Review of Systems Review of Systems: CONSTITUTIONAL: Reports malaise. Denies chills, sweats, or fever. EYES: Denies visual changes, redness, or discharge. ENT: Reports rhinorrhea, congestion,and sore throat. Denies sinus pain, otalgia CARDIOVASCULAR: Denies chest pain, palpitations, or edema. RESPIRATORY: Reports cough. Denies dyspnea. GASTROINTESTINAL: Denies abdominal pain, nausea, vomiting, diarrhea SKIN: Denies rash or itching. MUSCULOSKELETAL: Reports myalgia. NEUROLOGIC: Denies headache. All systems reviewed & are unremarkable except as noted in HPI and below PMFSH Past Medical History Medical History Cellulitis of scrotum Mild persistent asthma without complication Patient denies significant medical history Torticollis Family History Family History Mother Eye cancer Mother Skin cancer Social History Social History (Updated 05/19/21 @ 10:13 by Regina Longoria) Smoking status: Never smoker Second hand tobacco smoke exposure: No Alcohol intake: current Drinks per week: 1 Alcohol use details: 2-3 every other week Substance use: never Substance use type: does not use Gender identity (if verbalized by the patient): Male Sexual Orientation (if Verbalized by the Patient): Straight or Heterosexual Spiritual care concerns: No Comments At time of signature, agree with nursing past medical, surgical, social and family history. There is no relevant family history pertinent to the presenting complaint Exam Narrative: GENERAL: Well-appearing, well-nourished, and in no acute distress. HEAD: Normocephalic EYES: PERRLA, conjunctivae clear ENT: Nares clear, clear discharge. Mucous membranes moist. TM pearly concepcion with sharp light reflex bilaterally; no tragal tenderness. Oropharynx erythematous without lesions. Tonsils not enlarged and without exudate, no drooling, no hoarseness, no trismus, uvula midline. NECK: Supple. No lymphadenopathy CHEST: Clear to auscultation, breath sounds equal. No wheezing, rhonchi, rales, or stridor. No respiratory distress, speaks in full sentences. HEART: Regular rate and rhythm. No murmur heard. SKIN: Warm, dry, no rash. NEURO: Alert and oriented x3. PSYCH: Normal mood and affect Course Course Emergency Course: Patient is aware of diagnosis, understands and agrees to treatment plan. Anticipatory guidance given. Patient agrees to follow-up as directed and is aware of reasons to seek care at the emergency department. Portions of this record may have been created with voice recognition software Level of Care: Express Care Visit Vital Signs Vital signs: Vital Signs Temperature 98.9 F 11/26/21 11:42 Pulse Rate 60 11/26/21 11:42 Respiratory Rate 16
== END 2021-11-26 12:30 | disposition home or self-care (01) ==
PROVIDERS: Emergency Provider Nurse Practitioner; PCP Family Medicine
DX: J06.9 Acute upper respiratory infection, unspecified (principal); J45.909 Unspecified asthma, uncomplicated
CPT/HCPCS: 87081; 87880; 99213; G0463

== ENCOUNTER 2021-12-08 11:01 | Emergency (ER) | payer BC, SELFPAY ==
--- NOTE | ~2021-12-08 | XR_ITS ---
XR chest 2V DATE: 12/08/2021 11:57 INDICATION: Nonproductive cough for one month TECHNIQUE: 2 views COMPARISON: None FINDINGS: Normal heart size. No hilar or mediastinal enlargement. The lungs are clear of infiltrate o r consolidation. No pleural effusion or pulmonary vascular congestion or pneumothorax. Included skele tyra structures are unremarkable other than slight levoscoliosis of the thoracic spine. IMPRESSION: No active cardiopulmonary disease Reviewed, dictated and finalized at location A.
[2021-12-08 11:12] VITALS: BP 123/72; PULSE 66; RESP 16; TEMP 36.4; O2SAT 99
--- NOTE | 2021-12-08 11:23 | ED.URI ---
HPI - URI/Sore Throat General Chief Complaint: Upper Respiratory Infection Stated Complaint: cough Time Seen by Provider: 12/08/21 11:23 History of Present Illness HPI Narrative: Clint Mcguire is a 31 yo male with a PMH of asthma and allergies who comes to the [facility] with complaints of sore throat, , and also being on stable, nasal drainage. has gone on for almost a month; takes albuterol for asthma Related Data Home Medications Medication Instructions Recorded Confirmed montelukast 10 mg tablet 10 mg PO DAILY 06/26/19 12/08/21 albuterol sulfate 90 mcg/actuation 2 puff inhalation QID PRN Wheezing 12/08/21 12/08/21 aerosol inhaler epinephrine 0.3 mg/0.3 mL 1 ea subcut DIRECTED PRN 12/08/21 12/08/21 injection, auto-injector (Auvi-Q) Allergic Reaction methylphenidate HCl 10 mg tablet 1 tablet PO DAILY 12/08/21 12/08/21 Allergies Allergy/AdvReac Type Severity Reaction Status Date / Time ciprofloxacin [From Cipro] Allergy Redness of Verified 12/08/21 11:08 Skin peanut Allergy Other Verified 12/08/21 11:20 Review of Systems Review of Systems: CONSTITUTIONAL: Denies fever, chills, sweats. EYES: Denies visual changes, redness, discharge. ENT: Denies rhinorrhea, has congestion, has sore throat, otalgia. CARDIOVASCULAR: Denies chest pain, palpitations, edema. RESPIRATORY: Denies dyspnea, wheezing, has dry cough GASTROINTESTINAL: Denies abdominal pain, nausea, vomiting, diarrhea. GENITOURINARY: Denies dysuria, hematuria, abnormal discharge SKIN: Denies rash or itching. NEUROLOGIC: Denies numbness, or focal weakness. PSYCHIATRIC: Denies anxiety or depression. [facility] Past Medical History Medical History Cellulitis of scrotum Mild persistent asthma without complication Torticollis Family History Family History Mother Eye cancer Mother Skin cancer Social History Social History Smoking status: Never smoker Second hand tobacco smoke exposure: No Alcohol intake: current Drinks per week: 1 Alcohol use details: 2-3 every other week Substance use: never Substance use type: does not use Gender identity (if verbalized by the patient): Male Sexual Orientation (if Verbalized by the Patient): Straight or Heterosexual Spiritual care concerns: No Comments At time of signature, I agree with nursing past medical, surgical, social and family history. There is no relevant family history pertinent to the presenting complaint. Exam Narrative: GENERAL: This is a well-nourished, well-developed patient, in mild distress. HEAD: normocephalic, atraumatic. EYES: Sclera clear/white. Vision is grossly intact. EARS: External ears normal, auditory canals clear and without drainage, TMs normal without perforation. Hearing grossly intact. NOSE: External nose normal without nasal discharge, nares without redness, has rhinorrhea. THROAT: Mucous membranes moist, posterior pharynx erythema but no exudate NECK: Neck supple,-tender lymph nodes which he says is intermittent CARDIOVASCULAR: Regular rate and rhythm without murmurs, gallops, or rubs. RESPIRATORY: Clear to auscultation. Breath sounds equal bilaterally. No wheezes, rales, or rhonchi. GASTROINTESTINAL: Not done SKIN: warm, intact with no suspicious lesions or rash, good texture and turgor. NEURO: awake, alert, and oriented to person, place and time. There were no obvious focal neurologic abnormalities. Steady gait EXTREMITIES: Normal range of motion. BACK: Nontender without deformity Course Course Emergency Course: Patient here with sore throat congestion cough was seen here a month ago was strep tested was negative and put on antihistamines which has helped initially but all symptoms have returned. Asthma has been unstable Strep test-negative COVID test-negative Chest x-ray-no
== END 2021-12-08 12:20 | disposition home or self-care (01) ==
PROVIDERS: Emergency Provider Nurse Practitioner; PCP Family Medicine
DX: J40 Bronchitis, not specified as acute or chronic (principal); Z20.822 Contact with and (suspected) exposure to COVID-19; J45.909 Unspecified asthma, uncomplicated
CPT/HCPCS: 71046; 87081; 87426; 87880; 99213; C9803; G0463

== ENCOUNTER 2022-03-04 18:28 | Emergency (ER) | payer BC, SELFPAY ==
[2022-03-04 18:34] VITALS: BP 153/82; PULSE 87; RESP 20; TEMP 36.6; O2SAT 100
--- NOTE | 2022-03-04 18:49 | ECG_ITS ---
Measurements Intervals [place] Rate: 60 P: 8 AL: 140 QRS: 58 QRSD: 91 T: 43 QT: 380 QTc: 380 Interpretive Statements SINUS RHYTHM EARLY REPOLARIZATION NORMAL ECG NO PREVIOUS ECG AVAILABLE FOR COMPARISON Electronically Signed On 03-05-2022 7:56:26 CDT by Som Andrea M.D.
[2022-03-04 19:04] VITALS: BP 127/74; BP 138/60; BP 138/66; PULSE 74; PULSE 77; PULSE 82
[2022-03-04 19:06] LABS: Basophils Absolute Auto 0.1 K/mm3 (0.0-0.1); Eosinophils Absolute Auto 0.3 K/mm3 (0-0.3); Eosinophils Percent Auto 3.2 % (0-4.4); Hematocrit 39.9 % (42.0-52.0); Hemoglobin 13.3 g/dL (14.0-18.0); Immature Granulocyte Absolute 0.03 K/mm3 (0.00-0.031); Immature Granulocyte Percent A 0.4 % (0-0.5); Lymphocytes Absolute Auto 2.34 K/mm3 (0.9-3.2); Lymphocytes Percent Auto 30.1 % (18.3-44.2); Mean Corpuscular HGB Conc 33.3 g/dl (32-36); Mean Corpuscular Hemoglobin 28.3 pg (26-34); Mean Corpuscular Volume 84.9 fl (80-100); Mean Platelet Volume 9.7 fl (7.4-10.4); Monocytes Absolute Auto 0.7 K/mm3 (0.1-0.6); Monocytes Percent Auto 9.4 % (2.6-8.5); Neutrophils Absolute Auto 4.3 K/mm3 (1.3-6.7); Neutrophils Percent Auto 55.9 % (45.5-73.1); Platelet Count Result 264 k/mm3 (150-375); Red Cell Distribution Width 11.9 % (11.5-14.5); White Blood Count 7.8 K/mm3 (4.5-10.0)
[2022-03-04] MEDS: LACTATED RINGERS 1,000 ML 999 ML IV CONT (19:10)
[2022-03-04 19:18] LABS: Alanine Aminotransferase 29 U/L (6-50); Albumin Level 4.5 g/dL (3.5-5.1); Alkaline Phosphatase 40 U/L (38-126); Anion Gap 14 mmol/L (8-16); Aspartate Amino Transferase 29 U/L (17-59); Bilirubin,Total 0.5 mg/dL (0.2-1.3); Blood Urea Nitrogen 13 mg/dL (9-20); Calcium 8.6 mg/dL (8.4-10.2); Carbon Dioxide 26 mmol/L (22-30); Chloride 105 mmol/L (98-107); Estimated CRCL calculation 84 ml/min; Estimated Glomerular Filt Rate > 60; Glucose 93 mg/dL (65-110); Potassium 3.2 mmol/L (3.4-5.0); Sodium 145 mmol/L (137-145)
[2022-03-04 19:36] LABS: Magnesium 1.8 mg/dL (1.6-2.3)
--- NOTE | 2022-03-04 19:44 | ED.DIZZY ---
HPI - Dizziness General Chief Complaint: Dizziness Stated Complaint: lightheaded Time Seen by Provider: 03/04/22 18:43 Source: patient and RN notes reviewed Mode of arrival: ambulatory Limitations: no limitations History of Present Illness HPI Narrative: This is a 32 year old male who presents for evaluation of dizziness. Patient states he was riding in his car and he started feeling lightheaded. He pulled to side of road and he started becoming anxious. He developed hand tingling and heart racing. He also reports his teeth on his right jaw were aching at the time. He denies chest pain, headache or shortness of breath. He also notes that he may have passed out briefly on Monday. He states he was working out and performing squats when he developed nausea and lightheadedness. He states he was pale and everything was turn black. His adjunct trainer told him to sit down and he may have passed out briefly . He states he has been doing fine. He has been taking creatinine for short period. MD elicited complaint: lightheadedness Related Data Home Medications Medication Instructions Recorded Confirmed montelukast 10 mg tablet 10 mg PO DAILY 06/26/19 12/08/21 albuterol sulfate 90 mcg/actuation 2 puff inhalation QID PRN Wheezing 12/08/21 12/08/21 aerosol inhaler epinephrine 0.3 mg/0.3 mL 1 ea subcut DIRECTED PRN 12/08/21 12/08/21 injection, auto-injector (Auvi-Q) Allergic Reaction methylphenidate HCl 10 mg tablet 1 tablet PO DAILY 12/08/21 12/08/21 Allergies Allergy/AdvReac Type Severity Reaction Status Date / Time ciprofloxacin [From Cipro] Allergy Redness of Verified 12/08/21 11:08 Skin peanut Allergy Other Verified 12/08/21 11:20 Review of Systems Review of Systems: All systems reviewed & are unremarkable except as noted in HPI and below Constitutional: Constitutional: Denies chills, Denies fatigue, Denies fever(s) and Denies weakness ENT: Denies nasal congestion and Denies sore throat Respiratory: Respiratory: Denies chest congestion and Denies cough Gastrointestinal: Gastrointestinal: Denies abdominal pain, Reports nausea and Denies vomiting Neurologic: Denies vertigo, Reports syncope, Denies headache(s) and Denies focal weakness Psychiatric: Psychiatric: Reports anxiety PMFSH Past Medical History Medical History Cellulitis of scrotum Mild persistent asthma without complication Torticollis Family History Family History Mother Eye cancer Mother Skin cancer Social History Social History Smoking status: Never smoker Second hand tobacco smoke exposure: No Alcohol intake: current Drinks per week: 1 Alcohol use details: 2-3 every other week Substance use: never Substance use type: does not use Gender identity (if verbalized by the patient): Male Sexual Orientation (if Verbalized by the Patient): Straight or Heterosexual Spiritual care concerns: No Exam Narrative: GENERAL: Well-appearing, well-nourished, and in no acute distress. HEAD: Normocephalic, atraumatic EYES: PERRLA and EOMI, conjunctiva clear without discharge EARS: TM's clear bilaterally without erythema or dullness NOSE: Nares clear, no rhinorrhea or epistaxis THROAT:Mucous membranes moist, Oropharynx normal without erythema, exudate, peritonsillar swelling or fluctuance NECK: Supple, without lymphadenopathy or mass RESPIRATORY: No respiratory distress, Airway patent, Respirations non-labored, Clear to auscultation without rales, rhonchi or wheeze HEART: Regular rate and rhythm. No murmur heard. Normal peripheral pulses. ABDOMEN: Soft, nontender, nondistended, normal active bowel sounds. No masses. No rebound or guarding, No organomegaly. EXTREMITIES: No edema, normal strength with full range of motion. SKIN: Warm, dry, normal color without rash NEURO
[2022-03-04 19:48] LABS: Amphetamine Screen Urine Negative (Negative); Barbiturate Screen Urine Negative (Negative); Benzodiazepines Screen Urine Negative (Negative); Cannabinoid Screen Urine Negative (Negative); Cocaine Screen Urine Negative (Negative); Methadone Screen Urine Negative (Negative); Opiate Screen Urine Negative (Negative); Phencyclidine Screen Urine Negative (Negative)
[2022-03-04 19:48] LABS: Troponin I < 0.012 ng/mL (0.000-0.034)
[2022-03-04] MEDS: POTASSIUM CHLORIDE 20 MEQ TABLET 40 MEQ PO (20:04)
[2022-03-04 20:24] VITALS: BP 115/73; PULSE 63; RESP 18; O2SAT 99
== END 2022-03-04 20:25 | disposition home or self-care (01) ==
PROVIDERS: Emergency Provider General Practice; PCP Family Medicine
DX: R42 Dizziness and giddiness (principal); J45.30 Mild persistent asthma, uncomplicated; Z79.51 Long term (current) use of inhaled steroids; Z79.899 Other long term (current) drug therapy
CPT/HCPCS: 36415; 80053; 80307; 83735; 84484; 85025; 85380; 93005; 96360; 99284; A9270; J7120

== ENCOUNTER 2022-03-25 09:48 | Outpatient (CLI) | payer BC, SELFPAY ==
--- NOTE | 2022-03-25 09:51 | EST_ITS ---
Patient Info Name: Clint Mcguire Age: 32 years : 1990 Gender: Male Ht: 66 in Wt: 157 lbs BSA: 1.83 m2 Exam Date: 03/25/2022 10:02 AM Exam Location: [facility] Stress Patient Status: Outpatient Admit Date: 03/25/2022 Staff Ordering Physician: Fernando Todd PA-C Attending Provider: Fernando Todd PA-C Exercise Technologist: Vivienne Lunsford RDCS Exercise Physician: Cale Marie DO Exam Type: CA stress test treadmill Study Info Indications R55 - Syncope and collapse R07.9 - Chest pain, unspecified A treadmill exercise stress test was performed. Summary 1. 1. Negative John exercise stress test for ischemic ST changes by ECG criteria. 2. 2. Good functional capacity, achieving 12 METs of workload. 3. 3. Baseline hypertension with hypertensive response to exercise. 4. 4. Appropriate HR response to exercise. 5. 5. Appropriate HR recovery at 1 minute post exercise. 6. 6. No imaging with stress testing. 7. 7. Patient informed of the above results. Protocol: John Stress ECG Details Stage: REST Duration (min): 3 min : 1 sec Speed (mph): 0.0 Grade (%): 0 HR (bpm): 79 SBP (mmHg): 140 DBP (mmHg): 68 METS: --- Stage: REST Duration (min): 3 min : 52 sec Speed (mph): 0.0 Grade (%): 0 HR (bpm): 81 SBP (mmHg): 140 DBP (mmHg): 68 METS: --- Stage: STAGE 1 Duration (min): 1 min : 0 sec Speed (mph): 1.7 Grade (%): 10 HR (bpm): 95 SBP (mmHg): 140 DBP (mmHg): 68 METS: --- Stage: STAGE 1 Duration (min): 2 min : 0 sec Speed (mph): 1.7 Grade (%): 10 HR (bpm): 104 SBP (mmHg): 140 DBP (mmHg): 68 METS: --- Stage: STAGE 1 Duration (min): 3 min : 0 sec Speed (mph): 1.7 Grade (%): 10 HR (bpm): 99 SBP (mmHg): 185 DBP (mmHg): 70 METS: --- Stage: STAGE 2 Duration (min): 1 min : 0 sec Speed (mph): 2.5 Grade (%): 12 HR (bpm): 115 SBP (mmHg): 185 DBP (mmHg): 70 METS: --- Stage: STAGE 2 Duration (min): 2 min : 0 sec Speed (mph): 2.5 Grade (%): 12 HR (bpm): 116 SBP (mmHg): 184 DBP (mmHg): 74 METS: --- Stage: STAGE 2 Duration (min): 3 min : 0 sec Speed (mph): 2.5 Grade (%): 12 HR (bpm): 127 SBP (mmHg): 184 DBP (mmHg): 74 METS: --- Stage: STAGE 3 Duration (min): 1 min : 0 sec Speed (mph): 3.4 Grade (%): 14 HR (bpm): 137 SBP (mmHg): 181 DBP (mmHg): 79 METS: --- Stage: STAGE 3 Duration (min): 2 min : 0 sec Speed (mph): 3.4 Grade (%): 14 HR (bpm): 145 SBP (mmHg): 181 DBP (mmHg): 79 METS: --- Stage: STAGE 3 Duration (min): 3 min : 0 sec Speed (mph): 3.4 Grade (%): 14 HR (bpm): 154 SBP (mmHg): 174 DBP (mmHg): 81 METS: --- Stage: STAGE 4 Duration (min): 1 min : 0 sec Speed (mph): 4.2 Grade (%): 16 HR (bpm): 172 SBP (mmHg): 174 DBP (mmHg): 81 METS: ---
== END 2022-03-25 09:49 | disposition home or self-care (01) ==
LOC: ANHCARD 09:49
PROVIDERS: PCP Family Medicine; Visit Provider Physician Assistant
DX: R55 Syncope and collapse (principal); R07.89 Other chest pain
CPT/HCPCS: 93017

== ENCOUNTER 2022-04-02 11:29 | Emergency (ER) | payer BC, SELFPAY ==
[2022-04-02 11:37] VITALS: BP 124/78; PULSE 59; RESP 16; TEMP 36.4; O2SAT 99
--- NOTE | 2022-04-02 11:44 | ED.URI ---
HPI - URI/Sore Throat General Chief Complaint: Upper Respiratory Infection Stated Complaint: lema Time Seen by Provider: 04/02/22 11:44 Source: patient and RN notes reviewed Mode of arrival: ambulatory Limitations: no limitations History of Present Illness HPI Narrative: 32-year-old male presents concern for 7 day history of headache, ear pressure, postnasal drainage. Reports he has been taking Mucinex and ibuprofen. Reports several people he has been around have been ill. He denies fever, body aches, chills, sweats, cough, shortness of breath, nausea, vomiting, diarrhea, sore throat MD elicited complaint: cough and sore throat Related Data Home Medications Medication Instructions Recorded Confirmed montelukast 10 mg tablet 10 mg PO DAILY 06/26/19 03/10/22 epinephrine 0.3 mg/0.3 mL 1 ea subcut DIRECTED PRN 12/08/21 03/10/22 injection, auto-injector (Auvi-Q) Allergic Reaction methylphenidate HCl 10 mg tablet 1 tablet PO DAILY 12/08/21 03/10/22 albuterol 04/02/22 Allergies Allergy/AdvReac Type Severity Reaction Status Date / Time ciprofloxacin [From Cipro] Allergy Redness of Verified 04/02/22 11:35 Skin peanut Allergy Other Verified 04/02/22 11:35 Review of Systems Review of Systems: CONSTITUTIONAL: Denies malaise, chills, sweats, or fever. EYES: Denies visual changes, redness, or discharge. ENT: Reports rhinorrhea, congestion, sinus pain,and sore throat. Reports postnasal drainage no otalgia CARDIOVASCULAR: Denies chest pain, palpitations, or edema. RESPIRATORY: Denies cough. Denies dyspnea. GASTROINTESTINAL: Denies abdominal pain, nausea, vomiting, diarrhea SKIN: Denies rash or itching. MUSCULOSKELETAL: Denies myalgia. NEUROLOGIC: Reports headache. All systems reviewed & are unremarkable except as noted in HPI and below PMFSH Past Medical History Medical History Cellulitis of scrotum Mild persistent asthma without complication Torticollis Family History Family History Mother Eye cancer Mother Skin cancer Social History Social History (Reviewed 03/10/22 @ 15:28 by Regina Ramirez Smoking status: Never smoker Second hand tobacco smoke exposure: No Alcohol intake: current Drinks per week: 1 Alcohol use details: 2-3 every other week Substance use: never Substance use type: does not use Gender identity (if verbalized by the patient): Male Sexual Orientation (if Verbalized by the Patient): Straight or Heterosexual Spiritual care concerns: No Comments At time of signature, agree with nursing past medical, surgical, social and family history. There is no relevant family history pertinent to the presenting complaint Exam Narrative: GENERAL: Well-appearing, well-nourished, and in no acute distress. HEAD: Normocephalic EYES: PERRLA, conjunctivae clear ENT: Nares clear, postnasal drainage. Mucous membranes moist. TM pearly concepcion with dull light reflex bilaterally; no tragal tenderness. Oropharynx not erythematous without lesions. Tonsils not enlarged and without exudate, no drooling, no hoarseness, no trismus, uvula midline. NECK: Supple. No lymphadenopathy CHEST: Clear to auscultation, breath sounds equal. No wheezing, rhonchi, rales, or stridor. No respiratory distress, speaks in full sentences. HEART: Regular rate and rhythm. No murmur heard. SKIN: Warm, dry, no rash. NEURO: Alert and oriented x3. PSYCH: Normal mood and affect Course Course Emergency Course: Patient is aware of diagnosis, understands and agrees to treatment plan. Anticipatory guidance given. Patient agrees to follow-up as directed and is aware of reasons to seek care at the emergency department. Portions of this record may have been created with voice recognition software Level of Care: Express Care Visit Vital Signs Vital signs: Vital Signs Temperature 97.6 F 04/02/22 11:37 Pulse
== END 2022-04-02 12:18 | disposition home or self-care (01) ==
PROVIDERS: Emergency Provider Nurse Practitioner; PCP Family Medicine
DX: J32.9 Chronic sinusitis, unspecified (principal); J45.909 Unspecified asthma, uncomplicated
CPT/HCPCS: 87804; 99213; G0463

== ENCOUNTER 2022-10-22 17:54 | Emergency (ER) | payer BC, SELFPAY ==
[2022-10-22 18:06] VITALS: BP 130/70; PULSE 60; RESP 16; TEMP 37.1; O2SAT 100
--- NOTE | 2022-10-22 18:35 | ED.URI ---
HPI - URI/Sore Throat General Chief Complaint: Upper Respiratory Infection Stated Complaint: Sore Throat Time Seen by Provider: 10/22/22 18:25 Source: patient, RN notes reviewed and old records reviewed Mode of arrival: ambulatory Limitations: no limitations History of Present Illness HPI Narrative: 32 year old male who presents to [facility] complaints of sore throat and cold symptoms with fatigue for the past 1-2 weeks, denies any known fevers chills or sweats,denies any shortness of breath. Patient reports that he has painful swallowing and feels like he has lump in throat. Patient also requesting refill of his Albuterol and his Singulair. Patient reports that he has been taking Theraflu. MD elicited complaint: sore throat Pertinent past history: asthma and seasonal allergies Onset (ago): week(s) (1-2) Pain scale (0-10): 5 Able to tolerate fluids by mouth: Yes Treatments prior to arrival: other (Theraflu) Related Data Home Medications Medication Instructions Recorded Confirmed montelukast 10 mg tablet 10 mg PO DAILY 06/26/19 10/22/22 methylphenidate HCl 10 mg tablet 1 tablet PO DAILY 12/08/21 10/22/22 Allergies Allergy/AdvReac Type Severity Reaction Status Date / Time ciprofloxacin [From Cipro] Allergy Redness of Verified 04/02/22 11:35 Skin peanut Allergy Other Verified 04/02/22 11:35 Review of Systems Review of Systems: CONSTITUTIONAL: Denies malaise, chills, sweats, or fever. reports fatigue EYES: Denies visual changes, redness, or discharge. ENT: Reports rhinorrhea, congestion, sinus pain,no otalgia ,positive forsore throat. CARDIOVASCULAR: Denies chest pain, palpitations, or edema. RESPIRATORY: Reports cough.? Denies dyspnea. GASTROINTESTINAL: Denies abdominal pain, nausea, vomiting, diarrhea SKIN: Denies rash or itching. MUSCULOSKELETAL: Denies myalgia. NEUROLOGIC: Denies headache. All systems reviewed & are unremarkable except as noted in HPI and below PMFSH Past Medical History Medical History Cellulitis of scrotum Mild persistent asthma without complication Torticollis Family History Family History Mother Eye cancer Mother Skin cancer Social History Social History Smoking status: Never smoker Second hand tobacco smoke exposure: No Alcohol intake: current Drinks per week: 1 Alcohol use details: 2-3 every other week Substance use: never Substance use type: does not use Living arrangements: with family Occupation/Education: occupation Gender identity (if verbalized by the patient): Male Sexual Orientation (if Verbalized by the Patient): Straight or Heterosexual Spiritual care concerns: No Comments At time of signature, agree with nursing past medical, surgical, social and family history. There is no relevant family history pertinent to the presenting complaint Exam Narrative: GENERAL: Well-appearing, well-nourished, and in no acute distress. HEAD: Normocephalic EYES: PERRLA, conjunctivae clear ENT: Nares clear, turbinates edematous and erythematous, clear discharge. Mucous membranes moist. TM pearly concepcion with dull light reflex bilaterally; no tragal tenderness. Oropharynx erythematous without lesions. Tonsils not enlarged and without exudate, no drooling, no hoarseness, no trismus, uvula midline.some post nasal discharge NECK: Supple. No lymphadenopathy CHEST: Clear to auscultation, breath sounds equal. No wheezing, rhonchi, rales, or stridor. No respiratory distress, speaks in full sentences.no acute cough,SAO2 100% on room air HEART: Regular rate and rhythm. No murmur heard. SKIN: Warm, dry, no rash. NEURO: Alert and oriented x3. PSYCH: Normal mood and affect Course Course Emergency Course: Patient is aware of diagnosis, understands and agrees to tr
== END 2022-10-22 18:45 | disposition home or self-care (01) ==
PROVIDERS: Emergency Provider Registered Nurse; PCP Family Medicine
DX: J02.9 Acute pharyngitis, unspecified (principal); Z76.0 Encounter for issue of repeat prescription; J45.909 Unspecified asthma, uncomplicated
CPT/HCPCS: 87081; 87880; 99213; G0463

== ENCOUNTER 2023-04-03 14:48 | Emergency (ER) | payer BC, SELFPAY ==
[2023-04-03 14:56] VITALS: BP 116/74; PULSE 62; RESP 16; TEMP 36.6; O2SAT 100
--- NOTE | 2023-04-03 15:09 | ED.HA ---
HPI - Headache General Chief Complaint: Headache Stated Complaint: Headache Time Seen by Provider: 04/03/23 14:52 Source: patient Mode of arrival: ambulatory Limitations: no limitations History of Present Illness HPI Narrative: Patient is a 33-year-old that presents with headache since Monday. Patient states computer screens and the noises make pain worse. Patient primarily reports pain between bilateral eyes. Has been taking ibuprofen. Denies history of migraines. Patient states he had frequent headaches but they improved with taking the vitamins. Patient has only taken 600 mg of ibuprofen daily the last 3 days. Denies any changes in vision, numbness, tingling or weakness in extremities. Related Data Home Medications Medication Instructions Recorded Confirmed methylphenidate HCl 10 mg tablet 1 tablet PO DAILY 12/08/21 04/03/23 Allergies Allergy/AdvReac Type Severity Reaction Status Date / Time ciprofloxacin [From Cipro] Allergy Redness of Verified 04/03/23 14:49 Skin peanut Allergy Other Verified 04/03/23 14:49 Review of Systems Review of Systems: All systems reviewed & are unremarkable except as noted in HPI and below Constitutional: Constitutional: Denies body ache(s), Denies chills, Denies fatigue, Denies fever(s), Reports headache(s), Denies malaise and Denies weakness Eyes: Eyes: Denies blurry vision, Denies irritation and Denies loss of vision ENT: Denies otalgia, Denies headache(s), Denies nasal discharge, Denies sinus pain and Denies sore throat Cardiovascular: Cardiovascular: Denies chest pain, Denies irregular heart rhythm and Denies dyspnea Respiratory: Respiratory: Denies dyspnea Gastrointestinal: Gastrointestinal: Denies abdominal pain, Denies melena, Denies hematochezia, Denies diarrhea, Denies nausea and Denies vomiting Musculoskeletal: Musculoskeletal: Denies back pain, Denies myalgias and Denies arthralgias Integumentary/Breasts: Skin/Breast: Denies pruritus and Denies rash Neurologic: Denies headache(s), Denies loss of vision and Denies weakness Psychiatric: Psychiatric: Reports no additional psychiatric complaints Endocrine: Endocrine: Denies fatigue PMFSH Past Medical History Medical History Cellulitis of scrotum Mild persistent asthma without complication Torticollis Family History Family History Mother Eye cancer Mother Skin cancer Social History Social History Smoking status: Never smoker Second hand tobacco smoke exposure: No Alcohol intake: current Drinks per week: 1 Alcohol use details: 2-3 every other week Substance use: never Substance use type: does not use Living arrangements: with family Occupation/Education: occupation Gender identity (if verbalized by the patient): Male Sexual Orientation (if Verbalized by the Patient): Straight or Heterosexual Spiritual care concerns: No Comments At time of signature, agree with nursing past medical, surgical, social and family history. There is no relevant family history pertinent to the presenting complaint. Exam Const: General: cooperative, healthy appearing, comfortable, no acute distress and well nourished Nutritional Appearance: well nourished Orientation/consciousness: patient oriented x3 Limitations: no limitations HENMT: Head: normal to inspection, normocephalic and atraumatic Ears: hearing grossly normal bilaterally, external ears normal, TM's normal bilaterally and EAC's normal Face/Nose/Sinus: Normal external nose present, normal facial exam and face symmetric Face and sinus: normal facial exam and face symmetric Mouth: Yes Normal oral and palatal mucosa present, Yes lip normal, Yes tongue normal, Yes Normal salivary glands and ducts present, Yes oropharynx normal and Yes moist mucous membranes Teeth and gingi
[2023-04-03] MEDS: KETOROLAC 30 MG/ML VIAL (*BKC) IM (15:24)
== END 2023-04-03 16:08 | disposition home or self-care (01) ==
PROVIDERS: Emergency Provider Nurse Practitioner Family; PCP Family Medicine
DX: R51.9 Headache, unspecified (principal); Z20.822 Contact with and (suspected) exposure to COVID-19; J45.909 Unspecified asthma, uncomplicated
CPT/HCPCS: 87426; 96372; 99213; C9803; G0463; J1885

== ENCOUNTER 2023-05-12 17:41 | Emergency (ER) | payer BC, SELFPAY ==
--- NOTE | 2023-05-12 17:46 | ED.URI ---
HPI - URI/Sore Throat General Chief Complaint: Upper Respiratory Infection Stated Complaint: migraine /sinus pressure Time Seen by Provider: 05/12/23 17:56 Source: patient and RN notes reviewed Mode of arrival: ambulatory Limitations: no limitations History of Present Illness HPI Narrative: 33 year old male presents with concern for sinus pain and headache for 5 days. He has been taking anti-histamines, but no pain medicine. He denies thunderclap headache. He denies fever, aches, chills. MD elicited complaint: sinus pain Related Data Home Medications Medication Instructions Recorded Confirmed methylphenidate HCl 10 mg tablet 1 tablet PO DAILY 12/08/21 05/12/23 albuterol sulfate 90 mcg/actuation See Rx Instructions .Route .COMPLEX 05/12/23 05/12/23 aerosol inhaler cetirizine 10 mg tablet (Zyrtec) 10 mg PO DAILY 05/12/23 05/12/23 epinephrine 0.3 mg/0.3 mL 0.3 mg IM ONCE 05/12/23 05/12/23 injection, auto-injector (EpiPen) Allergies Allergy/AdvReac Type Severity Reaction Status Date / Time ciprofloxacin [From Cipro] Allergy Redness of Verified 05/12/23 17:47 Skin peanut Allergy Other Verified 05/12/23 17:47 Review of Systems Review of Systems: CONSTITUTIONAL: Denies malaise, chills, sweats, or fever. EYES: Denies visual changes, redness, or discharge. ENT: Denies rhinorrhea, congestion, otalgia and sore throat. Reports sinus pain CARDIOVASCULAR: Denies chest pain, palpitations, or edema. RESPIRATORY: Reports cough. Denies dyspnea. GASTROINTESTINAL: Denies abdominal pain, nausea, vomiting, diarrhea SKIN: Denies rash or itching. MUSCULOSKELETAL: Denies myalgia. NEUROLOGIC: Reports headache. All systems reviewed & are unremarkable except as noted in HPI and below PMFSH Past Medical History Medical History Cellulitis of scrotum Mild persistent asthma without complication Torticollis Family History Family History Mother Eye cancer Mother Skin cancer Social History Social History Smoking status: Never smoker Second hand tobacco smoke exposure: No Alcohol intake: current Drinks per week: 1 Alcohol use details: 2-3 every other week Substance use: never Substance use type: does not use Living arrangements: with family Occupation/Education: occupation Gender identity (if verbalized by the patient): Male Sexual Orientation (if Verbalized by the Patient): Straight or Heterosexual Spiritual care concerns: No Comments At time of signature, agree with nursing past medical, surgical, social and family history. There is no relevant family history pertinent to the presenting complaint Exam Narrative: GENERAL: Well-appearing, well-nourished, and in no acute distress. HEAD: Normocephalic EYES: PERRLA, conjunctivae clear ENT: Nares clear, turbinates edematous and erythematous. Mucous membranes moist. TM pearly concepcion with dull light reflex bilaterally; no tragal tenderness. Oropharynx not erythematous without lesions. Tonsils not enlarged and without exudate, no drooling, no hoarseness, no trismus, uvula midline. NECK: Supple. No lymphadenopathy CHEST: Clear to auscultation, breath sounds equal. No wheezing, rhonchi, rales, or stridor. No respiratory distress, speaks in full sentences. HEART: Regular rate and rhythm. No murmur heard. SKIN: Warm, dry, no rash. NEURO: Alert and oriented x3. PSYCH: Normal mood and affect Course Course Emergency Course: Patient is aware of diagnosis, understands and agrees to treatment plan. Anticipatory guidance given. Patient agrees to follow-up as directed and is aware of reasons to seek care at the emergency department. Portions of this record may have been created with voice recognition software Level of Care: Express Care Visit Vital Signs Vital signs: Reviewed.
[2023-05-12 17:48] VITALS: BP 126/67; PULSE 59; RESP 16; TEMP 37.1; O2SAT 99
== END 2023-05-12 18:07 | disposition home or self-care (01) ==
PROVIDERS: Emergency Provider Nurse Practitioner; PCP Family Medicine
DX: J32.9 Chronic sinusitis, unspecified (principal); J45.909 Unspecified asthma, uncomplicated
CPT/HCPCS: 99213; G0463

== ENCOUNTER 2023-06-01 17:05 | Emergency (ER) | payer BC, SELFPAY ==
--- NOTE | ~2023-06-01 | CT_ITS ---
EXAMINATION: CT lumbar spine wo con DATE: 06/01/2023 18:00 INDICATION: Low back pain. TECHNIQUE: Computed tomography (CT) of the lumbar spine was performed without intravenous contrast. A utomated exposure control and iterative reconstruction technique were employed. The dose-length produ ct was 393.50 mGy-cm. COMPARISON: None FINDINGS: There is 5 degrees dextrocurvature of lumbar spine. Vertebral body heights are normal. Ther e is mildly decreased disc height at L4-L5. The following disc levels are specifically discussed: L1-L2: The disc does not extend beyond the endplate margin. There is mild bilateral facet joint osteo arthritis. There is no neural foraminal stenosis. There is no central canal stenosis. L2-L3: The disc does not extend beyond the endplate margin. There is no facet joint osteoarthritis. T here is no neural foraminal stenosis. There is no central canal stenosis. L3-L4: The disc is bulging. There is mild bilateral facet joint osteoarthritis. There is mild left ne ural foraminal stenosis. There is no central canal stenosis. L4-L5: The disc is bulging. There is mild right facet joint osteoarthritis. There is mild bilateral n eural foraminal stenosis. There is mild central canal stenosis. L5-S1: The disc does not extend beyond the endplate margin. There is severe bilateral facet joint ost eoarthritis. There is no neural foraminal stenosis. There is no central canal stenosis. IMPRESSION: 1. Mild lumbar spondylosis. Reviewed, dictated and finalized at location E. ESS DEVELOPER IMPRESSION: 1. Mild lumbar spondylosis.
[2023-06-01 17:04] VITALS: BP 136/61; PULSE 67; RESP 16; TEMP 36.4; O2SAT 100
--- NOTE | 2023-06-01 17:57 | ED.BACK ---
HPI - Back Pain/Injury General Chief Complaint: Back Pain/Injury Stated Complaint: BACK PAIN Time Seen by Provider: 06/01/23 17:24 Source: patient Mode of arrival: EMS Limitations: no limitations History of Present Illness HPI Narrative: Patient is a 33-year-old male who presents the ED via EMS with report of low back pain. Patient reports he was working out at his house this afternoon and felt a twinge in his lower back when he was doing overhead lifting. He then tried stretching his back by bending over forward. He states he then felt a ripping/tearing in his lower back and complained of pain afterwards. He tried taking naproxen at home, but denied improvement of pain. EMS was then contacted. Patient reports pain with any type of movement. Denies pain radiating down his legs. Denies saddle anesthesia, bowel or bladder incontinence, weakness of legs. Denies abdominal pain, nausea, vomiting. Related Data Home Medications Medication Instructions Recorded Confirmed methylphenidate HCl 10 mg tablet 1 tablet PO DAILY 12/08/21 05/18/23 albuterol sulfate 90 mcg/actuation See Rx Instructions .Route .COMPLEX 05/12/23 05/18/23 aerosol inhaler cetirizine 10 mg tablet (Zyrtec) 10 mg PO DAILY 05/12/23 05/18/23 epinephrine 0.3 mg/0.3 mL 0.3 mg IM ONCE 05/12/23 05/18/23 injection, auto-injector (EpiPen) Allergies Allergy/AdvReac Type Severity Reaction Status Date / Time ciprofloxacin [From Cipro] Allergy Redness of Verified 05/18/23 13:25 Skin peanut Allergy Other Verified 05/18/23 13:25 Review of Systems Review of Systems: CONSTITUTIONAL: Denies fever, chills, or sweats. CARDIOVASCULAR: Denies chest pain. RESPIRATORY: Denies dyspnea. GASTROINTESTINAL: Denies incontinence, abdominal pain, nausea, vomiting, or diarrhea. GENITOURINARY: Denies incontinence, dysuria or hematuria. MUSCULOSKELETAL: See HPI. NEUROLOGIC: Denies headache, dizziness, numbness, or weakness. All systems reviewed & are unremarkable except as noted in HPI and below PMFSH Past Medical History Medical History Cellulitis of scrotum Mild persistent asthma without complication Torticollis Family History Family History Mother Eye cancer Mother Skin cancer Social History Social History Smoking status: Never smoker Second hand tobacco smoke exposure: No Alcohol intake: current Drinks per week: 1 Alcohol use details: 2-3 every other week Substance use: never Substance use type: does not use Living arrangements: with family Occupation/Education: occupation Gender identity (if verbalized by the patient): Male Sexual Orientation (if Verbalized by the Patient): Straight or Heterosexual Spiritual care concerns: No Exam Narrative: GENERAL: Well appearing, well-nourished, non-toxic, in no acute distress. HEAD: Normocephalic, atraumatic. RESPIRATORY: Airway patent, respirations nonlabored. Clear to auscultation bilaterally, no rales, rhonchi, wheezing. CARDIOVASCULAR: Regular rate and rhythm without murmurs, rubs, or gallops. MUSCULOSKELETAL: Moves all extremities. No gross deformities. Mild tenderness throughout lower midline lumbar spine, extending into left paraspinal musculature with palpable muscle tension. no bony deformities or palpable step-offs. Sensation intact. SKIN: Warm, dry, normal color. NEURO: A&O X3. Speech clear. Cranial nerves II-XII grossly intact. No ataxic movements. PSYCHIATRIC: Appropriate mood and affect. Normal interaction. Course Vital Signs Vital signs: Vital Signs Temperature 97.6 F 06/01/23 17:04 Pulse Rate 67 06/01/23 17:04 Respiratory Rate 16 06/01/23 17:04 Blood Pressure 136/61 06/01/23 17:04 Pulse Oximetry 100 06/01/23 17:04 Oxygen Delivery Room Air 06/01/23 17:04
[2023-06-01] MEDS: HYDROcodone/acetaminophen (*CRX) 5-325 MG TABLET 1 TAB PO (18:26)
[2023-06-01] MEDS: diazePAM INJ (*CRX) 10 MG/2 ML SYRINGE 2 MG IV PUSH (18:27)
[2023-06-01] MEDS: methylPREDNISolone SOD SUCC 125 MG VIAL IV PUSH (18:27)
[2023-06-01 20:30] VITALS: BP 133/70; PULSE 72; RESP 16; O2SAT 99
== END 2023-06-01 20:31 | disposition home or self-care (01) ==
PROVIDERS: Emergency Provider Physician Assistant; PCP Family Medicine
DX: S39.012A Strain of muscle, fascia and tendon of lower back, initial encounter (principal); M51.36 Other intervertebral disc degeneration, lumbar region; J45.30 Mild persistent asthma, uncomplicated; M47.816 Spondylosis without myelopathy or radiculopathy, lumbar region; X50.0XXA Overexertion from strenuous movement or load, initial encounter
CPT/HCPCS: 72131; 96374; 96375; 99284; A9270; J2930; J3360

== ENCOUNTER 2023-10-14 08:30 | Emergency (ER) | payer BC, SELFPAY ==
[2023-10-14 08:39] VITALS: BP 119/67; PULSE 52; RESP 16; TEMP 36.7; O2SAT 99
--- NOTE | 2023-10-14 09:01 | ED.HA ---
HPI - Headache General Chief Complaint: Headache Stated Complaint: migraine Time Seen by Provider: 10/14/23 08:43 Source: patient, RN notes reviewed and old records reviewed Mode of arrival: ambulatory Limitations: no limitations History of Present Illness HPI Narrative: Patient presents today complaining of a headache x2 weeks, worse over the past 10 days. Associated symptoms include photophobia, ?lines? in his vision, dizziness, nausea. Symptoms worsen with bright lights such as computer screens in the sun, decreases in dark rooms. Not worst headache ever. Currently rates his pain 5/10. He has been taking naproxen without much relief. Last dose was this morning. Patient does have history of headaches. He has been following up with his PCP who put him on the naproxen. He has been treated a few times in the past with steroids, which have been home full after NSAIDs did not help. Patient has tried to follow-up with his PCP, but could not get through phone to make an appointment. Related Data Home Medications Medication Instructions Recorded Confirmed methylphenidate HCl 10 mg tablet 1 tablet PO DAILY 12/08/21 10/14/23 cetirizine 10 mg tablet (Zyrtec) 10 mg PO DAILY 05/12/23 10/14/23 epinephrine 0.3 mg/0.3 mL 0.3 mg IM ONCE 05/12/23 10/14/23 injection, auto-injector (EpiPen) Allergies Allergy/AdvReac Type Severity Reaction Status Date / Time peanut Allergy Severe Other Verified 10/14/23 08:58 walnut Allergy Severe Other Verified 10/14/23 08:58 ciprofloxacin [From Cipro] Allergy Intermediate Redness of Verified 10/14/23 08:33 Skin Review of Systems Review of Systems: CONSTITUTIONAL: Denies body aches, fever, chills, or sweats. EYES: + photophobia, vision change ENT: Denies rhinorrhea, congestion, sore throat, or otalgia. CARDIOVASCULAR: Denies chest pain, palpitations, or edema. RESPIRATORY: Denies cough or dyspnea. GASTROINTESTINAL: Denies abdominal pain, vomiting, or diarrhea.+ nausea GENITOURINARY: Denies dysuria or hematuria. SKIN: Denies rash, itching, or wounds. MUSCULOSKELETAL: Denies back pain, joint pain, or myalgia. NEUROLOGIC: Denies numbness, tingling, or weakness.+ headache, dizziness PSYCH: Denies depression or anxiety. [facility] Past Medical History Medical History Cellulitis of scrotum Mild persistent asthma without complication Torticollis Family History Family History Mother Eye cancer Mother Skin cancer Social History Social History Smoking status: Never smoker Second hand tobacco smoke exposure: No Alcohol intake: current Drinks per week: 1 Alcohol use details: 2-3 every other week Substance use: never Substance use type: does not use Living arrangements: with family Occupation/Education: occupation Gender identity (if verbalized by the patient): Male Sexual Orientation (if Verbalized by the Patient): Straight or Heterosexual Spiritual care concerns: No Comments At time of signature, I have reviewed and agree with nursing past medical, surgical, social and family history unless otherwise noted. Please see nursing chart for further information. There is no relevant family history pertinent to the presenting complaint Exam Narrative: GENERAL: Well-appearing, well-nourished, and in no acute distress. Wearing sunglasses. HEAD: Normocephalic, atraumatic. EYES: EOMI. PERRL. No redness or drainage. Conjunctivae normal. ENT: Mucous membranes pink and moist. NECK: Normal AROM. CHEST: No respiratory distress. EXTREMITIES: Normal range of motion. No edema. SKIN: Warm, dry, no rash. Capillary refill normal. Normal skin turgor. NEURO: No focal deficits. Alert and oriented x3. Gait steady. Hand pig handler equal and strong. PSYCH: Normal affect. No signs of depression or
== END 2023-10-14 09:10 | disposition home or self-care (01) ==
PROVIDERS: Emergency Provider Nurse Practitioner; PCP Family Medicine
DX: R51.9 Headache, unspecified (principal); J45.909 Unspecified asthma, uncomplicated
CPT/HCPCS: 99213; G0463

== ENCOUNTER 2024-05-07 17:29 | Emergency (ER) | payer BC, SELFPAY ==
[2024-05-07 17:57] VITALS: BP 142/72; PULSE 82; RESP 16; TEMP 36.7; O2SAT 99
--- NOTE | 2024-05-07 18:41 | ED_ITS ---
HPI - Male Genitourinary General Chief complaint: Urogenital-Male Stated complaint: STD testing History of Present Illness HPI Narrative: Patient who denies any urinary symptoms presents requesting STD testing because he has a date tomorrow night. Related Data Home Medications ?Medication ?Instructions ?Recorded ?Confirmed ?Last Taken ?Type methylphenidate HCl 10 mg tablet 1 tablet PO DAILY 12/08/21 01/18/24 Unknown History cetirizine 10 mg tablet (Zyrtec) 10 mg PO DAILY 05/12/23 01/18/24 Unknown History epinephrine 0.3 mg/0.3 mL 0.3 mg IM ONCE 05/12/23 01/18/24 Unknown History injection, auto-injector (EpiPen) albuterol sulfate 90 mcg/actuation 1 inh inhalation Q4-6H PRN 01/18/24 01/18/24 Unknown History breath activated powder inhaler shortness of breath or wheezing azelastine 137 mcg (0.1 %) nasal 1 spray intranasal Q12H PRN 05/07/24 Unknown History spray allergic symptoms Allergies Allergy/AdvReac Type Severity Reaction Status Date / Time peanut Allergy Severe Other Verified 01/18/24 14:24 walnut Allergy Severe Other Verified 01/18/24 14:24 ciprofloxacin (From Cipro) Allergy Intermediate Redness of Verified 01/18/24 14:24 Skin Review of Systems Review of Systems: All systems reviewed & are unremarkable except as noted in HPI and below Constitutional: Constitutional: Reports no additional constitutional complaints ENT: Reports system reviewed and no additional complaints, except as documented Cardiovascular: Cardiovascular: Reports no additional cardiovascular complaints Respiratory: Respiratory: Reports no additional respiratory complaints Gastrointestinal: Gastrointestinal: Reports no additional gastrointestinal complaints [facility] Past Medical History Medical History Cellulitis of scrotum Torticollis Mild persistent asthma without complication Family History Family History Mother Eye cancer Mother Skin cancer Social History Social History Smoking status: Never smoker Second hand tobacco smoke exposure: No Alcohol intake: current Drinks per week: 1 Alcohol use details: 2-3 every other week Substance use: never Substance use type: does not use Living arrangements: with family Occupation/Education: occupation Gender identity (if verbalized by the patient): Male Sexual Orientation (if Verbalized by the Patient): Straight or Heterosexual Spiritual care concerns: No Exam Const: General: cooperative, no acute distress, alert and awake Orientation/consciousness: oriented to person, oriented to place and oriented to time HENMT: Head: normal to inspection Resp: Effort & Inspection: normal respiratory effort and able to speak in complete sentences Auscultation: clear to auscultation bilaterally, no crackles, no rales, no rhonchi and no wheezes Cardio: Palpation: normal PMI Rate: regular rate Rhythm: regular rhythm Heart sounds: S1 normal heart sound present and S2 normal heart sound present Neuro: General: oriented to person, oriented to place and oriented to time Cranial nerves: Yes CN's II-XII intact bilaterally Psych: Appearance: grossly normal Thought process: Normal thought process present Insight: Good insight present (Psych) Judgement: Good judgement present (Psych) Course Course Level of Care: Express Care Visit Vital Signs Vital signs: Vital Signs Temperature 98.1 F 05/07/24 17:57 Pulse Rate 82 05/07/24 17:57 Respiratory Rate 16 05/07/24 17:57 Blood Pressure 142/72 H 05/07/24 17:57 Pulse Oximetry 99 05/07/24 17:57 Oxygen Delivery Room Air 05/07/24 17:57 Temperature 98.1 F 05/07/24 17:57 Pulse Rate 82 05/07/24 17:57 Respiratory Rate 16 05/07/24 17:57 Blood Pressure 142/72 H 05/07/24 17:57 Pulse Oximetry 99 05/07/24 17:57 Oxygen Delivery Room Air 05/07/24 17:57 MDM - Male Genitourinary MDM Narrative Medical decision making narrative: No complaints. Discharge home. Lab testing pending Discharge instructions reviewed with patient, as well as provided in writing per nursing staff. The instructions also include specific and strict return/GO TO THE ER as well as f/u information. All questions have been answered, and the patient deny any further questions with discharge and discharge plan. Some parts of this dictation were generated by voice recognition software and may contain typographical and/or grammatical inaccuracies. Differential Diagnosis Differential diagnosis: Likely epididymitis and prostatitis Medical Records Attestation: I reviewed the patient's medical records. Discharge Plan Discharge Clinical Impression: Concern about sexually transmitted infection in male without diagnosis Patient Disposition: Home, Self-Care Condition: Stable Instructions: Antibiotic Form Patient Language: [place] Prescriptions: No Action cetirizine [Zyrtec] 10 mg Tablet 10 mg PO DAILY epinephrine [EpiPen] 0.3 mg/0.3 mL Auto-Injector 0.3 mg IM ONCE Rx Instructions: as a single dose; may repeat once methylphenidate HCl 10 mg tablet 1 tablet PO DAILY azelastine 137 mcg (0.1 %) spray,non-aerosol 1 spray INTRANASAL Q12H PRN (Reason: allergic symptoms) albuterol sulfate 90 mcg/actuation aerosol powdr breath activated 1 inh inhalation Q4-6H PRN (Reason: shortness of breath or wheezing) montelukast 10 mg tablet 10 mg PO DAILY Qty: 90 0RF Follow-up/Referrals: Ishan Chadwick MD [Primary Care Provider] - 2 Weeks Time of Disposition: 18:48
[2024-05-07 21:30] LABS: Trichomonas Vag PCR NOT DETECTED (NOT DETECTE)
[2024-05-07 21:53] LABS: Chlamydia trachomatis NOT DETECTED (NOT DETECTE); Neisseria gonorrhoeae PCR NOT DETECTED (NOT DETECTE)
== END 2024-05-07 18:52 | disposition home or self-care (01) ==
PROVIDERS: Emergency Provider Nurse Practitioner Family; PCP Family Medicine
DX: Z11.3 Encounter for screening for infections with a predominantly sexual mode of transmission (principal); J45.909 Unspecified asthma, uncomplicated
CPT/HCPCS: 87491; 87591; 87661; 99213; G0463

== ENCOUNTER 2024-09-01 08:18 | Emergency (ER) | payer BC, SELFPAY ==
[2024-09-01 08:26] VITALS: BP 129/64; PULSE 64; RESP 16; TEMP 36.3; O2SAT 99
--- NOTE | 2024-09-01 08:37 | ED.DENTAL ---
HPI - Dental/Oral General Chief complaint: Dental/Oral Stated complaint: right side tooth pain Time Seen by Provider: 09/01/24 08:29 Source: patient and RN notes reviewed Mode of arrival: ambulatory Limitations: no limitations History of Present Illness HPI Narrative: Patient presents today complaining of right lower dental pain x2 days, worse since yesterday. States he has also has some cold and heat sensitivity. This tooth has had a crown previously. Currently rates his pain 6/10 and has been taking ibuprofen and 1 dose of hydrocodone for pain. He does have a dentist and will call tomorrow for an appointment. Denies shortness of breath, fever, difficulty swallowing. Related Data Home Medications ?Medication ?Instructions ?Recorded ?Confirmed ?Last Taken ?Type methylphenidate HCl 10 mg tablet 1 tablet PO DAILY 12/08/21 09/01/24 Unknown History cetirizine 10 mg tablet (Zyrtec) 10 mg PO DAILY 05/12/23 09/01/24 Unknown History epinephrine 0.3 mg/0.3 mL 0.3 mg IM ONCE 05/12/23 09/01/24 Unknown History injection, auto-injector (EpiPen) albuterol sulfate 90 mcg/actuation 1 inh inhalation Q4-6H PRN 01/18/24 09/01/24 Unknown History breath activated powder inhaler shortness of breath or wheezing azelastine 137 mcg (0.1 %) nasal 1 spray intranasal Q12H PRN 05/07/24 09/01/24 Unknown History spray allergic symptoms Allergies Allergy/AdvReac Type Severity Reaction Status Date / Time peanut Allergy Severe Other Verified 09/01/24 08:21 walnut Allergy Severe Other Verified 09/01/24 08:21 ciprofloxacin (From Cipro) Allergy Intermediate Redness of Verified 09/01/24 08:21 Skin Review of Systems Review of Systems: CONSTITUTIONAL: Denies body aches, fever, chills, or sweats. EYES: Denies visual changes, redness, or discharge. ENT: Denies rhinorrhea, congestion, sore throat, or otalgia. +tooth pain CARDIOVASCULAR: Denies chest pain, palpitations, or edema. RESPIRATORY: Denies cough or dyspnea. GASTROINTESTINAL: Denies abdominal pain, nausea, vomiting, or diarrhea. GENITOURINARY: Denies dysuria or hematuria. SKIN: Denies rash, itching, or wounds. MUSCULOSKELETAL: Denies back pain, joint pain, or myalgia. NEUROLOGIC: Denies headache, numbness, tingling, or weakness. PSYCH: Denies depression or anxiety. [facility] Past Medical History Medical History Cellulitis of scrotum Torticollis Mild persistent asthma without complication Family History Family History Mother Eye cancer Mother Skin cancer Social History Social History Smoking status: Never smoker Second hand tobacco smoke exposure: No Alcohol intake: current Drinks per week: 1 Alcohol use details: 2-3 every other week Substance use: never Substance use type: does not use Living arrangements: with family Occupation/Education: occupation Gender identity (if verbalized by the patient): Male Sexual Orientation (if Verbalized by the Patient): Straight or Heterosexual Spiritual care concerns: No Comments At time of signature, I have reviewed and agree with nursing past medical, surgical, social and family history unless otherwise noted. Please see nursing chart for further information. There is no relevant family history pertinent to the presenting complaint Exam Narrative: GENERAL: Well-appearing, well-nourished, and in no acute distress. HEAD: Normocephalic, atraumatic. EYES: EOMI. No redness or drainage. Conjunctivae normal. ENT: Mucous membranes pink and moist. TTP tooth #30. No obvious periapical abscess, swelling. Slight dark discoloration of the adjacent gum line, but patient states this is baseline. No facial swelling noted. NECK: Normal AROM. Supple. No lymphadenopathy. CHEST: No respiratory distress. EXTREMITIES: Normal range of motion. No edema. SKIN: Warm, dry, no rash. Capillary refill normal. Normal skin turgor. NEURO: No focal deficits. Alert and oriented x3. Gait steady. PSYCH: Normal affect. No signs of depression or anxiety. Course Course Level of Care: Express Care Visit Vital Signs Vital signs: Vital Signs Temperature 97.3 F L 09/01/24 08:26 Pulse Rate 64 09/01/24 08:26 Respiratory Rate 16 09/01/24 08:26 Blood Pressure 129/64 09/01/24 08:26 Pulse Oximetry 99 09/01/24 08:26 Oxygen Delivery Room Air 09/01/24 08:26 Temperature 97.3 F L 09/01/24 08:26 Pulse Rate 64 09/01/24 08:26 Respiratory Rate 16 09/01/24 08:26 Blood Pressure 129/64 09/01/24 08:26 Pulse Oximetry 99 09/01/24 08:26 Oxygen Delivery Room Air 09/01/24 08:26 Reviewed MDM - Dental/Oral MDM Narrative Medical decision making narrative: Patient will be treated with amoxicillin for dental infection. He will call his dentist tomorrow to schedule a follow-up visit. ED precautions given. Differential Diagnosis Differential diagnosis: Likely gingival abscess, dental caries, toothache, dental abscess and fracture of tooth Critical Care Time Critical Care Time Critical Care Time: No Discharge Plan Discharge Clinical Impression: Dentalgia Patient Disposition: Home, Self-Care Condition: Stable Instructions: Antibiotic Form, Toothache (ED) Additional Instructions: Take the amoxicillin as prescribed until gone. Schedule a follow-up visit with your dentist as soon as possible for further evaluation and treatment. Continue Tylenol or ibuprofen for pain. As discussed, if you develop any worsening symptoms such as fever greater than 100.3, shortness of breath, difficulty swallowing, please go to the ER immediately for further evaluation. Your blood pressure was elevated above 120/80 today at Urgent Care. This puts you above the threshold for follow up. Please schedule a followup visit with your personal physician as soon as possible, for further evaluation and treatment. Even blood pressure exceeding 120/80 may indicate pre-hypertension. Patient Language: Nigerien Prescriptions: New amoxicillin 875 mg tablet 875 mg PO Q12H 10 Days Qty: 20 0RF No Action cetirizine [Zyrtec] 10 mg Tablet 10 mg PO DAILY epinephrine [EpiPen] 0.3 mg/0.3 mL Auto-Injector 0.3 mg IM ONCE Rx Instructions: as a single dose; may repeat once methylphenidate HCl 10 mg tablet 1 tablet PO DAILY azelastine 137 mcg (0.1 %) spray,non-aerosol 1 spray INTRANASAL Q12H PRN (Reason: allergic symptoms) albuterol sulfate 90 mcg/actuation aerosol powdr breath activated 1 inh inhalation Q4-6H PRN (Reason: shortness of breath or wheezing) montelukast 10 mg tablet 10 mg PO DAILY Qty: 90 0RF Follow-up/Referrals: Ishan Chadwick MD [Primary Care Provider] - Time of Disposition: 08:36
== END 2024-09-01 08:40 | disposition home or self-care (01) ==
PROVIDERS: Emergency Provider Nurse Practitioner; PCP Family Medicine
DX: K08.89 Other specified disorders of teeth and supporting structures (principal); J45.909 Unspecified asthma, uncomplicated
CPT/HCPCS: 99213; G0463